=== PATIENT | female | born 1970 | race Caucasian/White ===

== ENCOUNTER → 2017-05-17 15:49 | Outpatient (CLI) | payer MEDICAID, SELFPAY ==
--- NOTE | 2017-05-17 | TONS_PTH ---
PATIENT: BRENDA FLORIAN [facility] U#:[id number] AGE/SX: 54/F ROOM: RE05/17/[address]: Dr. Terrance Hinton MD : 1970 BED: DIS: SPEC #: [id number] RECD: 05/17/17 15:47 STATUS: THANIA SRINIVASAN #: [id number] SUZIE: 05/17/17 00:[address]: Terrance Hinton DEPT: SURGICAL PATHOLOGY RECD BY: Robby Magaña ENTERED: 05/18/17 08:57 SP TYPE: TONSILS OTHR DR: Dr. Cb Borjas MD [facility] Tissues: Tonsil, NOS Procedures: Surgery Specimen Level III HEADER OPERATION: Tonsillectomy PRE-OP DIAGNOSIS: Chronic tonsillitis, acute recurrent streptococcal tonsillitis TISSUE SUBMITTED: Tonsils, right pinned MICROSCOPIC DIAGNOSIS Bilateral tonsils: Reactive lymphoid hyperplasia, consistent with chronic tonsillitis. Superficial acute inflammation. Focal actinomyces colonization. KRISTYN:tu 05/19/17 MICROSCOPIC DESCRIPTION Slides are reviewed. GROSS DESCRIPTION Received is one container labeled with the patient's name and designated tonsils - pin on right are two tonsils that in aggregate weigh 5.7 gm. The right tonsil has a pin on it and measures 2 x 1.5 x 1 cm. The left tonsil measures 3.5 x 2 x 1 cm. Both tonsils are similar in appearance. The external surfaces are pink-nixon, smooth, glistening and somewhat lobulated. Focally they are hemorrhagic, granular and bear cautery artifact. Serial cross sections through the tonsils reveal normal tonsillar architecture. Sections are submitted in two cassettes as follows: 1 - right tonsil, 2 - left tonsil. / KRISTYN:tu 05/18/17 TC:2 CPT: 27417 x2
== END ==
PROVIDERS: Family Provider Family Medicine; PCP Family Medicine; Visit Provider Otolaryngology Otolaryngology/Facial Plastic Surgery
DX: J03.01 Acute recurrent streptococcal tonsillitis (principal); J35.01 Chronic tonsillitis
CPT/HCPCS: 88304

== ENCOUNTER → 2018-02-01 23:11 | Outpatient (CLI) | payer MEDICAID, SELFPAY | PROVIDERS: Referring Provider Nurse Practitioner Family | DX: G47.00 Insomnia, unspecified (principal); G47.10 Hypersomnia, unspecified; G47.9 Sleep disorder, unspecified; R06.83 Snoring | CPT/HCPCS: 95810 ==

== ENCOUNTER → 2018-03-06 12:02 | Outpatient (CLI) | payer MEDICAID, SELFPAY ==
--- NOTE | 2018-03-06 12:05 | BI_ITS ---
MAMMOGRAPHY - BILATERAL SCREENING REASON FOR EXAM: Female, 47 years old. Routine annual screening examination. PERTINENT HISTORY: Aunts with breast cancer. TECHNIQUE: Digital bilateral breast adeline (3D mammographic acquisition) in the CC and MLO projections. 2-D mediolateral oblique (MLO) and craniocaudad (CC) views of both breasts were obtained. CAD: Full Field Digital Mammography with Computer Added Detection was performed. COMPARISON: No comparison mammograms available at this time. If any prior films become available, an addendum to this report can be generated. FINDINGS: Breast Composition: The breasts are heterogeneously dense, which may obscure small masses. There are no dominant masses or suspicious calcifications. Benign-appearing bilateral axillary lymph nodes. No other significant abnormalities are identified. BI/SCREENING MAMM (CAD), BILAT IMPRESSION: Negative screening mammogram. Yearly followup mammogram recommended. (A) ASSESSMENT CATEGORY: BIRADS Category 2: Benign. A letter regarding these results will be sent to the patient by the facility within 30 days. Approximately 10% of breast cancers are not detected by mammography. A normal mammogram should not delay biopsy of a clinically suspicious abnormality. [id number] Electronically Signed: Joce Patel MD at 8:08 EST Tel [phone], Service support ,
--- OUTSIDE RECORDS SUMMARY | 2018-06-08 02:18 | XMS RPT_ITS ---
:1970 Author Organization [facility] Care Team Providers Name Role Phone [facility] Referring Unavailable ROMARIO OKEEFE Attending Unavailable ROMARIO OKEEFE Attending Unavailable FERMÍN OKEEFEM ANASTACIA Referring Unavailable YVONNE HUNG (PRETZEL PACKER) Attending Unavailable [facility] Referring Unavailable ROMARIO OKEEFE Attending Unavailable YVONNE HUNG (PRETZEL PACKER) Referring [facility]available [facility] Attending Unavailable Jen Ibarra Referring Unavailable [facility] Primary Care Unavailable Terrance Hinton Attending Unavailable [facility] Primary [facility] Unavailable Terrance Hinton Referring Unavailable [facility] Attending Unavailable [facility] Unavailable PROBLEMS PROBLEMS DATE TYPE CONDITION / CODE ATTENDING STATUS SOURCE 07/04/2017 Active Abnormal findings ROMARIO OKEEFE Active [facility] on diagnostic [facility] imaging of other Repository parts of digestive tract / R93.3(ICD-10) 09/14/2017 Active Epigastric ROMARIO OKEEFE Active [facility] abdominal [facility] tenderness / Repository R10.816(ICD-10) 07/01/2017 Active Epigastric pain / NA Active [facility] R10.13(ICD-10) Other [place] Repository PROCEDURES PROCEDURES No Procedure Records FoundRESULTS RESULTS OBSOLETE Observed: 03/28/2018 Status: COMPLETED Source: [place] 12:00 AM [facility] REPOSITORY Refill (GSTNOR) ANIVALBRENDA Luma ([id number]) 1970 F Date Time Provider Department 03/28/18 ROMARIO OKEEFE GSTNOR During your visit today, we recorded the following information about you: Danae Honeycutt Ma 03/28/2018 3:33 PM Signed Pharmacy phones requesting refills as follows: Pending Prescriptions Disp Refills DIPHENOXYLATE-ATROPINE 2.5 MG-0.025 MG TABLET 30 tablet 2 Sig: Take 1 tablet by mouth three times daily as needed for up to 180 days. DAYSI Class: C-V YUKO: No Danae Honeycutt MA Allergies As of Date: 03/28/2018 Noted Allergy Reaction OXYCODONE 05/27/2015 8 - GI Upset Comments: Vomiting and diarrhea Date Reviewed: 11/25/2017 Reviewed by: Yoana Jacobo LPN - Fully Assessed Reason for Visit: Refill Request [94] Visit Diagnosis:Diarrhea, unspecified type [R19.7] Order(s):diphenoxylate-atropine (LOMOTIL) 2.5-0.025 mg per tabletTake 1 tablet by mouth three times daily as needed for up to 180 days.Disp: 30 tabletRfl: 2 Prescriptions as of 03/28/2018 Sig: DIPHENOXYLATE-ATROPINE 2.5 MG* Take 1 tablet by mouth three * OMEPRAZOLE 20 MG CAPSULE,ANDER* Take 2 capsules by mouth castro* ACYCLOVIR 400 MG TABLET Take 400 mg by mouth. TRAZODONE 50 MG TABLET Take 50 mg by mouth daily at * SERTRALINE 50 MG TABLET Take 50 mg by mouth once castro* DICYCLOMINE 20 MG TABLET Take 1 tablet by mouth four t* HYDROXYZINE PAMOATE 25 MG CAP* 50 mg three times daily as ne* LAMOTRIGINE 100 MG TABLET One tablet twice a day. ONDANSETRON 4 MG DISINTEGRATI* Take 1 tablet by mouth every * Problem List As Of Date 03/28/2018 Noted Resolved Idiopathic chronic hypotension [I95.0] INVALID FOR* Hypoglycemia [E16.2] INVALID FOR* Abnormal uterine bleeding [N93.9] INVALID FOR* Former smoker [Z87.891] INVALID FOR* Nausea and vomiting [R11.2] INVALID FOR*07/02/2015 Lower abdominal pain [R10.30] INVALID FOR*07/02/2015 Diarrhea [R19.7] INVALID FOR*07/02/2015 Irritable bowel syndrome with diarrhea [K58.0] INVALID FOR* Bipolar affective disorder, currently depressed*INVALID FOR* More... Personality disorder [F60.9] INVALID FOR* More... PTSD (post-traumatic stress disorder) [F43.10] INVALID FOR* Encounter for lipid screening for cardiovascula*INVALID FOR* Abnormal upper gastrointestinal barium series [*INVALID FOR* Prescriptions ordered this encounter Disp Refills Start End DIPHENOXYLATE-ATROPINE 2.5 MG-0.025 * 30 t* 2 04/03/2018 09/30/2018 Class: Call Rx Route: ORAL Sig: Take 1 tablet by mouth three times daily as needed for up to 180 days. Medications Discontinued During This Encounter diphenoxylate-atropine (LOMOTIL) 2.5* 30 t* 2 11/25/2017 04/03/2018 Class: Print RX Route: ORAL Sig: Take 1 tablet by mouth three times daily as needed for up to 180 days. Disc: Reason for discontinue is not on file. Encounter Status:Closed by ROMARIO OKEEFE MD on 04/03/18 SCREENING MAMM (CAD), Observed: 03/06/2018 Status: F Source: AYSHA SHIREENLEBRON 12:05 PM [facility] REPOSITORY [facility] Imaging Services [address] [place] [address] SCREENING MAMM (CAD), BILAT MR#: [id number] Acct: [id number] Name: BRENDA FLORIAN Rep #: [id number] : 1970 F 47 From: Joce Patel MD PCP: [facility] MD Status: REG CLI Study: SCREENING MAMM (CAD), BILAT Date of Exam: 03/06/18 Exam# [id number] Ordering Dr: Hipolito Skinner MAMMOGRAPHY - BILATERAL SCREENING REASON FOR EXAM: Female, 47 years old. Routine annual screening examination. PERTINENT HISTORY: Aunts with breast cancer. TECHNIQUE: Digital bilateral breast adeline (3D mammographic acquisition) in the CC and MLO projections. 2-D mediolateral oblique (MLO) and craniocaudad (CC) views of both breasts were obtained. CAD: Full Field Digital Mammography with Computer Added Detection was performed. COMPARISON: No comparison mammograms available at this time. If any prior films become available, an addendum to this report can be generated. FINDINGS: Breast Composition: The breasts are heterogeneously dense, which may obscure small masses. There are no dominant masses or suspicious calcifications. Benign-appearing bilateral axillary lymph nodes. No other significant abnormalities are identified. BI/SCREENING MAMM (CAD), BILAT IMPRESSION: Negative screening mammogram. Yearly followup mammogram recommended. (A) ASSESSMENT CATEGORY: BIRADS Category 2: Benign. A letter regarding these results will be sent to the patient by the facility within 30 days. Approximately 10% of breast cancers are not detected by mammography. A normal mammogram should not delay biopsy of a clinically suspicious abnormality. [id number] Electronically Signed: Joce Patel MD at 8:08 EST Tel [phone], Service support , CC: [facility] MD; [facility] Phlebotomy Manager: Signed CBC AND DIFFERENTIAL Collected: 02/15/2018 Status: F Source: [place] 9:09 AM CLINIC REFERENCE REPOSITORY TYPE CODE TESTS RESULT OUT OF REFERENCE UNITS RANGE LAB WBC(LOINC) 3.70-11.00 k/uL WBC 8.13 LAB RBC(LOINC) 3.90-5.20 m/uL RBC 4.38 LAB HGB(LOINC) 11.5-15.5 g/dL Hemoglobin 13.0 LAB HCT(LOINC) 36.0-46.0 % Hematocrit 40.4 LAB MCV(LOINC) 80.0-100.0 fL MCV 92.2 LAB MCH(LOINC) 26.0-34.0 pG MCH 29.7 LAB MCHC(LOINC 30.5-36.0 g/dL ) MCHC 32.2 LAB RDWCV(LOIN 11.5-15.0 % C) RDW-CV 13.0 LAB PLTCT(LOIN 150-400 k/uL C) Platelet Count 334 LAB MPV(LOINC) 9.0-12.7 fL MPV 11.1 LAB ANEUT(LOIN % C) Neut% 54.5 LAB AANEUT(LAMAR 1.45-7.50 k/uL NC) Abs Neut 4.41 LAB ALYMP(LOIN % C) Lymph% 32.3 LAB AALYMP(LAMAR 1.00-4.00 k/uL NC) Abs Lymph 2.63 LAB AMONO(LOIN % C) Gibson% 6.8 LAB AAMONO(LAMAR <0.87 k/uL NC) Abs Gibson 0.55 LAB AEOS(LOINC % ) Eosin% 5.5 LAB AAEOS(LOIN <0.46 k/uL C) Abs Eosin 0.45 LAB ABASO(LOIN % C) Baso% 0.9 LAB AABASO(LAMAR <0.11 k/uL NC) Abs Baso 0.07 LAB AUNRBC(LAMAR 0 /100 WBC NC) NRBCs 0.0 LAB ABNRBC(LAMAR <0.01 k/uL NC) Absolute nRBC <0.01 LAB DTYP(LOINC ) DTYPE ADIFF Performed By: #### CBCDIF, CMP, LIPB, FT4, LI, TSH, HBA1C, VITD #### [facility] Routine Lab [address] [place], [place] [address] COMP METABOLIC PANEL Collected: 02/15/2018 Status: F Source: [place] 9:09 AM CLINIC REFERENCE REPOSITORY TYPE CODE TESTS RESULT OUT OF REFERENCE UNITS RANGE LAB TP(LOINC) 6.3-8.0 g/dL Protein, Total 6.8 LAB ALB(LOINC) 3.9-4.9 g/dL Albumin 4.2 LAB CA(LOINC) 8.5-10.2 mg/dL Calcium, Total 8.8 LAB TBIL(LOINC 0.2-1.3 mg/dL ) Bilirubin, Total 0.3 LAB ALKP(LOINC 34-123 U/L ) Alkaline Phosphatase 86 LAB AST(LOINC) 13-35 U/L AST 30 LAB GLU(LOINC) 74-99 mg/dL Glucose 83 LAB BUN(LOINC) 7-21 mg/dL BUN 13 LAB CRET(LOINC 0.58-0.96 mg/dL ) Creatinine 0.83 LAB NA(LOINC) 136-144 mmol/L Sodium 140 LAB K(LOINC) 3.7-5.1 mmol/L Potassium 4.4 LAB CL(LOINC) 97-105 mmol/L Chloride 105 LAB CO2(LOINC) 22-30 mmol/L CO2 23 LAB AGAP(LOINC 9-18 mmol/L ) Anion Gap 12 LAB ALT(LOINC) 7-38 U/L ALT 29 LAB GFRAA(LOIN C) eGFR- >60 Amer. LAB GFRNAA(LAMAR . NC) eGFR-All Other Races >60 Performed By: #### CBCDIF, CMP, LIPB, FT4, LI, TSH, HBA1C, VITD #### [facility] Routine Lab [address] [place], [place] [address] LIPID PANEL, BASIC Collected: 02/15/2018 Status: F Source: [place] 9:09 AM [facility]INIC REFERENCE REPOSITORY TYPE CODE TESTS RESULT OUT OF REFERENCE UNITS RANGE LAB CHOL(LOINC <200 mg/dL ) Cholesterol 181 LAB TRIGLY(LAMAR <150 mg/dL NC) Triglyceride 83 LAB HDL(LOINC) >39 mg/dL HDL-Cholesterol 61 LAB LDL(LOINC) <100 mg/dL High LDL-Cholesterol 103 LAB NONHDL(LAMAR <130 mg/dL NC) Non HDL Cholesterol 120 LAB FT(LOINC) hrs Fasting Time 12 LAB VLDL(LOINC <30 mg/dL ) VLDL Cholesterol 17 LAB TCHDL(LOIN <5.10 C) TC:HDL Ratio 2.97 LAB LDLHDL(LAMAR <2.54 NC) LDL:HDL Ratio 1.69 Performed By: #### CBCDIF, CMP, LIPB, FT4, LI, TSH, HBA1C, VITD #### [facility] Routine Lab [address] [place] [address] FREE T4 Collected: 02/15/2018 Status: F Source: [place] 9:09 AM [facility] REFERENCE REPOSITORY TYPE CODE TESTS RESULT OUT OF RANGE REFERENCE UNITS LAB FT4(LOINC) 0.9-1.7 ng/dL Low Free T4 0.8 Performed By: #### CBCDIF, CMP, LIPB, FT4, LI, TSH, HBA1C, VITD #### [facility] Routine Lab [address] [place] [id number] LITHIUM Collected: 02/15/2018 Status: F Source: [place] 9:09 AM [facility] REFERENCE REPOSITORY TYPE CODE TESTS RESULT OUT OF REFERENCE UNITS RANGE LAB LI(LOINC) 0.6-1.2 mmol/L Low Evan 0.3 Performed By: #### CBCDIF, CMP, LIPB, FT4, LI, TSH, HBA1C, VITD #### [facility] Routine Lab [address] [place] [address] TSH Collected: 02/15/2018 Status: F Source: [place] 9:09 AM [facility] REFERENCE REPOSITORY TYPE CODE TESTS RESULT OUT OF RANGE REFERENCE UNITS LAB TSH(LOINC) 0.400-5.500 uU/mL TSH 3.430 Performed By: #### CBCDIF, CMP, LIPB, FT4, LI, TSH, HBA1C, VITD #### [facility] Routine Lab [address] [place] [address] HEMOGLOBIN A1C Collected: 02/15/2018 Status: F Source: [place] 9:09 AM CLINIC REFERENCE REPOSITORY TYPE CODE TESTS RESULT OUT OF REFERENCE UNITS RANGE LAB HGBA1C(LAMAR 4.3-5.6 % NC) Hemoglobin A1c 5.1 LAB HBA0(LOINC mg/dL ) Est. Average Glucose 100 Performed By: #### CBCDIF, CMP, LIPB, FT4, LI, TSH, HBA1C, VITD #### [facility] Routine Lab [address] [place], [place] [address] VITAMIN D 25 HYDROXY Collected: 02/15/2018 Status: F Source: [place] 9:09 AM CLINIC REFERENCE REPOSITORY TYPE CODE TESTS RESULT OUT OF REFERENCE UNITS RANGE LAB VITD(LOINC) 31.0-80.0 ng/mL Low Vitamin D 25 25.2 Hydroxy Performed By: #### CBCDIF, CMP, LIPB, FT4, LI, TSH, HBA1C, VITD #### [facility] Routine Lab [address] [place], [place] [address] CBC AND DIFFERENTIAL Collected: 01/04/2018 Status: F Source: [place] 11:27 AM CLINIC REFERENCE REPOSITORY TYPE CODE TESTS RESULT OUT OF REFERENCE UNITS RANGE LAB WBC(LOINC) 3.70-11.00 k/uL WBC 7.86 LAB RBC(LOINC) 3.90-5.20 m/uL RBC 4.33 LAB HGB(LOINC) 11.5-15.5 g/dL Hemoglobin 13.2 LAB HCT(LOINC) 36.0-46.0 % Hematocrit 40.4 LAB MCV(LOINC) 80.0-100.0 fL MCV 93.3 LAB MCH(LOINC) 26.0-34.0 pG MCH 30.5 LAB MCHC(LOINC 30.5-36.0 g/dL ) MCHC 32.7 LAB RDWCV(LOIN 11.5-15.0 % C) RDW-CV 13.0 LAB PLTCT(LOIN 150-400 k/uL C) Platelet Count 305 LAB MPV(LOINC) 9.0-12.7 fL MPV 10.9 LAB ANEUT(LOIN % C) Neut% 49.4 LAB AANEUT(LAMAR 1.45-7.50 k/uL NC) Abs Neut 3.86 LAB ALYMP(LOIN % C) Lymph% 38.5 LAB AALYMP(LAMAR 1.00-4.00 k/uL NC) Abs Lymph 3.03 LAB AMONO(LOIN % C) Gibson% 7.0 LAB AAMONO(LAMAR <0.87 k/uL NC) Abs Gibson 0.55 LAB AEOS(LOINC % ) Eosin% 4.2 LAB AAEOS(LOIN <0.46 k/uL C) Abs Eosin 0.33 LAB ABASO(LOIN % C) Baso% 0.9 LAB AABASO(LAMAR <0.11 k/uL NC) Abs Baso 0.07 LAB AUNRBC(LAMAR 0 /100 WBC NC) NRBCs 0.0 LAB ABNRBC(LAMAR <0.01 k/uL NC) Absolute nRBC <0.01 LAB DTYP(LOINC ) DTYPE ADIFF Performed By: #### CBCDIF, CMP, LIPB, TSH, FT4, HBA1C, VITD #### [facility] Routine Lab [address] [place] [address] COMP METABOLIC PANEL Collected: 01/04/2018 Status: F Source: [place] 11:27 AM CLINIC REFERENCE REPOSITORY TYPE CODE TESTS RESULT OUT OF REFERENCE UNITS RANGE LAB TP(LOINC) 6.3-8.0 g/dL Protein, Total 6.9 LAB ALB(LOINC) 3.9-4.9 g/dL Albumin 4.2 LAB CA(LOINC) 8.5-10.2 mg/dL Calcium, Total 8.9 LAB TBIL(LOINC 0.2-1.3 mg/dL ) Bilirubin, Total 0.2 LAB ALKP(LOINC 34-123 U/L ) Alkaline Phosphatase 85 LAB AST(LOINC) 13-35 U/L AST 26 LAB GLU(LOINC) 74-99 mg/dL Low Glucose 70 LAB BUN(LOINC) 7-21 mg/dL BUN 13 LAB CRET(LOINC 0.58-0.96 mg/dL ) Creatinine 0.85 LAB NA(LOINC) 136-144 mmol/L Sodium 139 LAB K(LOINC) 3.7-5.1 mmol/L Potassium 4.2 LAB CL(LOINC) 97-105 mmol/L Chloride 105 LAB CO2(LOINC) 22-30 mmol/L CO2 23 LAB AGAP(LOINC 9-18 mmol/L ) Anion Gap 11 LAB ALT(LOINC) 7-38 U/L ALT 20 LAB GFRAA(LOIN C) eGFR- >60 Amer. LAB GFRNAA(LAMAR . NC) eGFR-All Other Races >60 Performed By: #### CBCDIF, CMP, LIPB, TSH, FT4, HBA1C, VITD #### [facility] Routine Lab [address] [place] [id number] LIPID PANEL, BASIC Collected: 01/04/2018 Status: F Source: [place] 11:27 AM CLINIC REFERENCE REPOSITORY TYPE CODE TESTS RESULT OUT OF REFERENCE UNITS RANGE LAB CHOL(LOINC <200 mg/dL ) Cholesterol 197 LAB TRIGLY(LAMAR <150 mg/dL NC) Triglyceride 93 LAB HDL(LOINC) >39 mg/dL HDL-Cholesterol 64 LAB LDL(LOINC) <100 mg/dL High LDL-Cholesterol 114 LAB NONHDL(LAMAR <130 mg/dL NC) Non HDL High Cholesterol 133 LAB FT(LOINC) hrs Fasting Time 12 LAB VLDL(LOINC <30 mg/dL ) VLDL Cholesterol 19 LAB TCHDL(LOIN <5.10 C) TC:HDL Ratio 3.08 LAB LDLHDL(LAMAR <2.54 NC) LDL:HDL Ratio 1.78 Performed By: #### CBCDIF, CMP, LIPB, TSH, FT4, HBA1C, VITD #### [facility] Routine Lab [address] [place] [address] TSH Collected: 01/04/2018 Status: F Source: [place] 11:27 AM CLINIC REFERENCE REPOSITORY TYPE CODE TESTS RESULT OUT OF RANGE REFERENCE UNITS LAB TSH(LOINC) 0.400-5.500 uU/mL TSH 3.470 Performed By: #### CBCDIF, CMP, LIPB, TSH, FT4, HBA1C, VITD #### [facility] Routine Lab [address] [place] [address] FREE T4 Collected: 01/04/2018 Status: F Source: [place] 11:27 AM CLINIC REFERENCE REPOSITORY TYPE CODE TESTS RESULT OUT OF RANGE REFERENCE UNITS LAB FT4(LOINC) 0.9-1.7 ng/dL Free T4 1.0 Performed By: #### CBCDIF, CMP, LIPB, TSH, FT4, HBA1C, VITD #### [facility] Routine Lab [address] [place], [place] [address] HEMOGLOBIN A1C Collected: 01/04/2018 Status: F Source: [place] 11:27 AM CLINIC REFERENCE REPOSITORY TYPE CODE TESTS RESULT OUT OF REFERENCE UNITS RANGE LAB HGBA1C(LAMAR 4.3-5.6 % NC) Hemoglobin A1c 5.1 LAB HBA0(LOINC mg/dL ) Est. Average Glucose 100 Performed By: #### CBCDIF, CMP, LIPB, TSH, FT4, HBA1C, VITD #### [facility] Routine Lab [address] [place], [place] [address] VITAMIN D 25 HYDROXY Collected: 01/04/2018 Status: F Source: [place] 11:27 AM CLINIC REFERENCE REPOSITORY TYPE CODE TESTS RESULT OUT OF REFERENCE UNITS RANGE LAB VITD(LOINC) 31.0-80.0 ng/mL Low Vitamin D 25 23.7 Hydroxy Performed By: #### CBCDIF, CMP, LIPB, TSH, FT4, HBA1C, VITD #### [facility] Routine Lab [address] [place], [place] [address] HPV W/GENOTYPE Collected: 01/03/2018 Status: F Source: [place] 10:57 PM CLINIC REFERENCE REPOSITORY TYPE CODE TESTS RESULT OUT OF REFERENCE UNITS RANGE LAB HPVT16(LOIN C) HPV HighRisk NHPV16 Type 16 LAB HPVT18(LOIN C) HPV HighRisk NHPV18 Type 18 LAB HPVHRO(LOIN C) HPV HighRisk PCR. Other Observed: 01/03/2018 Status: F Source: [place] CYTOLOGY 12:00 AM CLINIC REFERENCE REPOSITORY ADDITIONAL PROCEDURES PRESENT Specimen #: [id number] Submitting Physician: MADYSON VOGT SPECIMEN SUBMITTED A: CERVICAL, SCREENING, FLUID FINAL DIAGNOSIS A. CERVICAL, SCREENING, FLUID Satisfactory for interpretation. Limited cellularity. Negative for intraepithelial lesion or malignancy. This specimen has been analyzed by the ThinPrep Imaging System, an automated imaging and review system, which assists the laboratory in evaluating cells on ThinPrep Pap tests. Following automated imaging, selected sanders from every slide are reviewed by a home health care respiratory therapist. ADITHYA Santana(ASCP) (Electronic Signature) ADDITIONAL PROCEDURE(S) HUMAN PAPILLOMA VIRUS Date Ordered: 01/05/2018 Date Reported: 01/09/2018 Procedure Results and Interpretation Negative for HPV DNA high risk type 16 by PCR. Negative for HPV DNA high risk type 18 by PCR. Negative for HPV DNA high risk types: 31,33,35,39,45,51,52,56,58,59,66,68 by PCR. This test was developed and its performance characteristics determined by [facility]'s [facility] [place] ([facility] It has not been cleared or approved by the FDA. [facility] is regulated under CLIA as qualified to perform high-complexity testing. This test is used for clinical purposes. It should not be regarded as investigational or for research. CLINICAL DATA OLGA LIDIA, HPV Testing; Yes, automatic HPV patients over 30 Date of Last Menstrual Period: 01/03/2018 STAINS A: CERVICAL, SCREENING, FLUID [facility] SPECIALIST Albertina Dodge M.D., Machine Bunch Maker Date of Report: 01/10/2018 Date of Procedure: 01/03/2018 Date of Receipt: 01/05/2018 Submitted by: MADYSON VOGT Location: Diagnostic interpretation performed at [facility], [address] [place] [address]. The Pap Smear is a screening test for cervical cancer. False negative results occur with all screening tests, emphasizing the need for rescreening at recommended intervals, and clinical correlation. Performed By: #### C #### See report for performing lab information. PROGRESS Observed: 11/25/2017 Status: COMPLETED Source: [place] 10:44 AM [facility] REPOSITORY HNO ID: [id number] Author: Romario Okeefe Service: (none) Author Type: Physician Type: Progress Notes Filed: 11/30/2017 8:18 AM Note Text: Abdominal Pain; epigastric tenderness; abnormal UGI; and Diarrhea (follow-up EGD) MADISON Florian is a 46 year old female here today for Abdominal Pain; epigastric tenderness; abnormal UGI; and Diarrhea (follow- up EGD). Patient s/p EGD, reflux symptoms under control on PPI, off of NSAIDS. Diarrhea under symptomatic control with bentyl and lomotil. Record Review: [facility] records reviewed Current Outpatient Prescriptions: omeprazole (PRILOSEC) 20 mg capsule Take 2 capsules by mouth daily before breakfast. 1/2 hr before meal. acyclovir (ZOVIRAX) 400 mg tablet Take 400 mg by mouth. traZODone (DESYREL) 50 mg tablet Take 50 mg by mouth daily at bedtime. Up to 150mg sertraline (ZOLOFT) 50 mg tablet Take 50 mg by mouth once daily. diphenoxylate-atropine (LOMOTIL) 2.5-0.025 mg per tablet Take 1 tablet by mouth three times daily as needed for up to 180 days. dicyclomine (BENTYL) 20 mg tablet Take 1 tablet by mouth four times daily as needed. hydrOXYzine pamoate (VISTARIL) 25 mg capsule 50 mg three times daily as needed. lamoTRIgine (LAMICTAL) 100 mg tablet One tablet twice a day. busPIRone (BUSPAR) 15 mg tablet Take 1/2 a tab by mouth twice a day for 2 weeks than one twice a day. ondansetron orally disintegrating (ZOFRAN ODT) 4 mg disintegrating tablet Take 1 tablet by mouth every 6 hours as needed for Nausea/Vomiting. No current facility-administered medications for this visit. ALLERGIES Allergen Reactions - Oxycodone GI Upset Vomiting and diarrhea Social History Substance Use Topics - Smoking status: Former Smoker Packs/day: 0.09 Years: 14.00 Quit date: 05/30/2015 - Smokeless tobacco: Never Used - Alcohol use Yes Comment: Rarely PAST MEDICAL HISTORY Diagnosis Date - Bipolar affective disorder, currently depressed, moderate (HCC) 07/06/2016 Has been off and on medications since the age of 23 - Dysmenorrhea - Esophagitis - Excessive or frequent menstruation Heavy periods - Gastritis - Hypoglycemia 05/14/2015 - Idiopathic chronic hypotension 05/14/2015 - Irritable bowel syndrome with diarrhea 05/04/2016 - Lactose intolerance in adult 2016 - Personality disorder (HCC) 07/06/2016 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 - PTSD (post-traumatic stress disorder) 07/06/2016 PAST SURGICAL HISTORY Procedure Laterality Date - COLONOSCOPY 07/02/2015 normal colon, 5 mm rectal polyp - CRYOCAUTERY OF CERVIX 2 times - EGD 09/14/2017 Grade A reflux esophagitis, acute gastritis, neg H Pylori - 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 Gas PHYSICAL EXAM BP 136/80 Pulse 63 Ht 157.5 cm (5' 2) Wt 63.3 kg (139 lb 8 oz) SpO2 96% BMI 25.51 kg/m? BMI 25.51 kg/(m2) Physical Exam Constitutional: She is oriented to person, place, and time and well-developed, well-nourished, and in no distress. HENT: Head: Normocephalic and atraumatic. Eyes: Conjunctivae are normal. No scleral icterus. Neck: Neck supple. Cardiovascular: Normal rate, regular rhythm and normal heart sounds. Pulmonary/Chest: Effort normal and breath sounds normal. Abdominal: Soft. Bowel sounds are normal. Musculoskeletal: She exhibits no edema. Neurological: She is alert and oriented to person, place, and time. Gait normal. Skin: Skin is warm and dry. Psychiatric: Mood, memory, affect and judgment normal. Assessment/Plan: Brenda was seen today for abdominal pain, epigastric tenderness, abnormal ugi and diarrhea. Diagnoses and all orders for this visit: Irritable bowel syndrome with diarrhea Epigastric abdominal tenderness without rebound tenderness Diarrhea, unspecified type continue Bentyl and lomotil Gastroesophageal reflux disease without esophagitis Continue Omeprazole I have confirmed and edited as necessary, the PFSH and ROS obtained by others. Romario Okeefe MD DATE: 11/25/17 TIME: 10:44 AM BETO Observed: 11/25/2017 Status: COMPLETED Source: [place] 10:30 AM [facility] REPOSITORY Office Visit (GSTNOR) BRENDA FLORIAN ([id number]) 1970 F Date Time Provider Department 11/25/17 10:30 AM ROMARIO OKEEFE GSTNOR During your visit today, we recorded the following information about you: Pulse Blood pressure Weight Height 63/minute 136/80 63.3 kg 1.575 m Romario Okeefe MD 11/30/2017 8:18 AM Signed Abdominal Pain; epigastric tenderness; abnormal UGI; and Diarrhea (follow-up EGD) HPI Brenda Florian is a 46 year old female here today for Abdominal Pain; epigastric tenderness; abnormal UGI; and Diarrhea (follow- up EGD). Patient s/p EGD, reflux symptoms under control on PPI, off of NSAIDS. Diarrhea under symptomatic control with bentyl and lomotil. Record Review: [facility] records reviewed Current Outpatient Prescriptions: omeprazole (PRILOSEC) 20 mg capsule Take 2 capsules by mouth daily before breakfast. 1/2 hr before meal. acyclovir (ZOVIRAX) 400 mg tablet Take 400 mg by mouth. traZODone (DESYREL) 50 mg tablet Take 50 mg by mouth daily at bedtime. Up to 150mg sertraline (ZOLOFT) 50 mg tablet Take 50 mg by mouth once daily. diphenoxylate-atropine (LOMOTIL) 2.5-0.025 mg per tablet Take 1 tablet by mouth three times daily as needed for up to 180 days. dicyclomine (BENTYL) 20 mg tablet Take 1 tablet by mouth four times daily as needed. hydrOXYzine pamoate (VISTARIL) 25 mg capsule 50 mg three times daily as needed. lamoTRIgine (LAMICTAL) 100 mg tablet One tablet twice a day. busPIRone (BUSPAR) 15 mg tablet Take 1/2 a tab by mouth twice a day for 2 weeks than one twice a day. ondansetron orally disintegrating (ZOFRAN ODT) 4 mg disintegrating tablet Take 1 tablet by mouth every 6 hours as needed for Nausea/Vomiting. No current facility-administered medications for this visit. ALLERGIES Allergen Reactions - Oxycodone GI Upset Vomiting and diarrhea Social History Substance Use Topics - Smoking status: Former Smoker Packs/day: 0.09 Years: 14.00 Quit date: 05/30/2015 - Smokeless tobacco: Never Used - Alcohol use Yes Comment: Rarely PAST MEDICAL HISTORY Diagnosis Date - Bipolar affective disorder, currently depressed, moderate (HCC) 07/06/2016 Has been off and on medications since the age of 23 - Dysmenorrhea - Esophagitis - Excessive or frequent menstruation Heavy periods - Gastritis - Hypoglycemia 05/14/2015 - Idiopathic chronic hypotension 05/14/2015 - Irritable bowel syndrome with diarrhea 05/04/2016 - Lactose intolerance in adult 2016 - Personality disorder (HCC) 07/06/2016 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 - PTSD (post-traumatic stress disorder) 07/06/2016 PAST SURGICAL HISTORY Procedure Laterality Date - COLONOSCOPY 07/02/2015 normal colon, 5 mm rectal polyp - CRYOCAUTERY OF CERVIX 2 times - EGD 09/14/2017 Grade A reflux esophagitis, acute gastritis, neg H Pylori - 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 Gas PHYSICAL EXAM BP 136/80 Pulse 63 Ht 157.5 cm (5' 2) Wt 63.3 kg (139 lb 8 oz) SpO2 96% BMI 25.51 kg/m? BMI 25.51 kg/(m2) Physical Exam Constitutional: She is oriented to person, place, and time and well-developed, well-nourished, and in no distress. HENT: Head: Normocephalic and atraumatic. Eyes: Conjunctivae are normal. No scleral icterus. Neck: Neck supple. Cardiovascular: Normal rate, regular rhythm and normal heart sounds. Pulmonary/Chest: Effort normal and breath sounds normal. Abdominal: Soft. Bowel sounds are normal. Musculoskeletal: She exhibits no edema. Neurological: She is alert and oriented to person, place, and time. Gait normal. Skin: Skin is warm and dry. Psychiatric: Mood, memory, affect and judgment normal. Assessment/Plan: Brenda was seen today for abdominal pain, epigastric tenderness, abnormal ugi and diarrhea. Diagnoses and all orders for this visit: Irritable bowel syndrome with diarrhea Epigastric abdominal tenderness without rebound tenderness Diarrhea, unspecified type continue Bentyl and lomotil Gastroesophageal reflux disease without esophagitis Continue Omeprazole I have confirmed and edited as necessary, the PFSH and ROS obtained by others. Romario Okeefe MD DATE: 11/25/17 TIME: 10:44 AM Referring Provider: SELF [[id number]] Allergies As of Date: 11/25/2017 Noted Allergy Reaction OXYCODONE 05/27/2015 8 - GI Upset Comments: Vomiting and diarrhea Date Reviewed: 11/25/2017 Reviewed by: Yoana Jacobo LPN - Fully Assessed Reason for Visit: Abdominal Pain [1] epigastric tenderness [Other] abnormal UGI [Other] Diarrhea [35] Cmt: follow-up EGD Primary Visit Diagnosis:Irritable bowel syndrome with diarrhea [K58.0] Other Visit Diagnoses:Epigastric abdominal tenderness without rebound tenderness [R10.816] Diarrhea, unspecified type [R19.7] Gastroesophageal reflux disease without esophagitis [K21.9] Order(s):diphenoxylate-atropine (LOMOTIL) 2.5-0.025 mg per tabletTake 1 tablet by mouth three times daily as needed for up to 180 days.Disp: 30 tabletRfl: 2 Prescriptions as of 11/25/2017 Sig: DIPHENOXYLATE-ATROPINE 2.5 MG* Take 1 tablet by mouth three * OMEPRAZOLE 20 MG CAPSULE,ANDER* Take 2 capsules by mouth castro* ACYCLOVIR 400 MG TABLET Take 400 mg by mouth. TRAZODONE 50 MG TABLET Take 50 mg by mouth daily at * SERTRALINE 50 MG TABLET Take 50 mg by mouth once castro* DICYCLOMINE 20 MG TABLET Take 1 tablet by mouth four t* HYDROXYZINE PAMOATE 25 MG CAP* 50 mg three times daily as ne* LAMOTRIGINE 100 MG TABLET One tablet twice a day. ONDANSETRON 4 MG DISINTEGRATI* Take 1 tablet by mouth every * Problem List As Of Date 11/25/2017 Noted Resolved Idiopathic chronic hypotension [I95.0] INVALID FOR* Priority: A Hypoglycemia [E16.2] INVALID FOR* Priority: B Abnormal uterine bleeding [N93.9] INVALID FOR* Former smoker [Z87.891] INVALID FOR* Nausea and vomiting [R11.2] INVALID FOR*07/02/2015 Lower abdominal pain [R10.30] INVALID FOR*07/02/2015 Diarrhea [R19.7] INVALID FOR*07/02/2015 Irritable bowel syndrome with diarrhea [K58.0] INVALID FOR* Priority: B Bipolar affective disorder, currently depressed*INVALID FOR* Priority: A More... Personality disorder [F60.9] INVALID FOR* Priority: A More... PTSD (post-traumatic stress disorder) [F43.10] INVALID FOR* Priority: A Encounter for lipid screening for cardiovascula*INVALID FOR* Abnormal upper gastrointestinal barium series [*INVALID FOR* Prescriptions ordered this encounter Disp Refills Start End DIPHENOXYLATE-ATROPINE 2.5 MG-0.025 * 30 t* 2 11/25/2017 05/24/2018 Class: Print RX Route: ORAL Sig: Take 1 tablet by mouth three times daily as needed for up to 180 days. Medications Discontinued During This Encounter busPIRone (BUSPAR) 15 mg tablet 60 t* 3 09/14/2016 11/25/2017 Sig: Take 1/2 a tab by mouth twice a day for 2 weeks than one twice a day. Disc: Reason for discontinue is not on file. diphenoxylate-atropine (LOMOTIL) 2.5* 30 t* 2 09/06/2017 11/25/2017 Class: Print RX Route: ORAL Sig: Take 1 tablet by mouth three times daily as needed for up to 180 days. Disc: Reason for discontinue is not on file. Disposition: Return in about 6 months (around 05/25/2018). Follow-up and Disposition History Recorded Encounter Status:Closed by ROMARIO OKEEFE MD on 11/30/17 SURGICAL PATHOLOGY Observed: 09/14/2017 Status: F Source: [place] 9:18 AM [facility] REPOSITORY Specimen originated from [facility] Specimen #: [id number] Submitting Physician: ROMARIO OKEEFE FINAL DIAGNOSIS 1. Duodenum bulb, biopsy (A) - Duodenal mucosa with focal erosion and active inflammation. - No morphologic features of celiac disease. 2. Antrum, biopsy (B) - Antral mucosa with chronic inactive gastritis. - Negative for Helicobacter pylori (immunostain). /jenny 09/15/2017 COMMENT 2. Given the background of chronic gastritis a Helicobacter pylori immunostain was performed on block B1 and is negative for Helicobacter pylori organisms. Laboratory Developed Test (LDT) Disclaimer: Positive and negative controls stain appropriately. Performance characteristics of immunohistochemical, immunofluorescent and chromogenic in-situ hybridization tests have been determined by [facility]'s [facility] Pathology and Laboratory Medicine [place] ([facility] in a manner consistent with CLIA requirements. One or more of these tests have not been cleared or approved by the FDA. [facility] is regulated under CLIA as qualified to perform high-complexity testing. These tests are used for clinical purposes. They should not be regarded as investigational or for research. Pino Vasquez MD, Ph.D. (Electronic Signature) SPECIMEN SUBMITTED A: DUODENAL BULB, BIOPSY B: ANTRUM, BIOPSY CLINICAL DATA epigastric tenderness/diarrhea GROSS DESCRIPTION A. Received in formalin are two pieces of nixon, soft tissue aggregating to 0.5 x 0.2 x 0.2 cm. Totally submitted in one cassette. B. Received in formalin are four pieces of nixon, soft tissue aggregating to 0.8 x 0.3 x 0.2 cm. Totally submitted in one cassette. Gross examination performed at [facility], [address] [place] [address] 09/15/2017 12:57:59 AM Date of Report: 09/16/2017 Date of Procedure: 09/14/2017 Date of Receipt: 09/14/2017 Submitted by: ROMARIO OKEEFE Location: [facility] Diagnostic interpretation performed at [facility], [address] [place] [address]. HISTORY PHYSICAL Observed: 09/14/2017 Status: COMPLETED Source: [place] 8:47 AM [facility] RE[facility]ITORY [facility] ID: [id number] Author: Romario Okeefe Service: (none) Author Type: Physician Type: HANDP Filed: 09/14/2017 9:18 AM Note Text: HISTORY AND PHYSICAL Brenda Florian, 46 year old female here for EGD, epigastric pain, tenderness and abnormal UGI showing thickening of stomach, duodenum and proximal small bowel Current history and physical on file: Yes Is a new History and Physical required for today's visit? No Indication for procedure: Abdominal pain PROCEDURE(S) SCHEDULED FOR: EGD (Esophagogastroduodenoscopy) with or without biopsies, removal of polyps or lesions, dilation ( any means), treatment of bleeding ( any means), Barrx treatment of Giovanni's Esophagus, image tube placement or cryo therapy treatment based on clinical findings. BASELINE BEHAVIOR: Calm BASELINE ORIENTATION: A AND O x3 All medications and allergies reviewed: Yes Skin Assessment: Warm dry muscus membranes pink Airway/Respiratory Assessment: Airway: visualization of the uvula- Yes Mouth: opening greater than 2 fingerbreadths- Yes Neck: full range of motion- Yes Breath sounds clear/equal- Yes Cardiac Assessment: Regular rate and rhythm without murmur Abdominal Assessment: Abdomen soft, non-tender, no masses or organomegaly. Sedation Plan: Deep Additional Comments: None Romario Okeefe MD PROGRESS Observed: 09/06/2017 Status: COMPLETED Source: [place] 1:51 PM [facility] RE[facility] HNO ID: [id number] Author: Romario Okeefe Service: (none) Author Type: Physician Type: Progress Notes Filed: 09/06/2017 2:19 PM Note Text: Abdominal Pain (abnormal UGI evaluate for an EGD) HPI: Brenda Florian is a 46 year old female who presents for Abdominal Pain (abnormal UGI evaluate for an EGD). C/O epigastric pain, severe episodic pain, lasting entire night. Takes oral antiacids for this pain episodes. Takes prilosec for heart burn, reasonably under control. No dysphagia, but does have reclining reflux, no cough, hoarseness of voice. No weight loss. Has some diarrhea for which takes bentyl and loperamide. 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 traZODone (DESYREL) 50 mg tablet Take 50 mg by mouth daily at bedtime. Up to 150mg sertraline (ZOLOFT) 50 mg tablet Take 50 mg by mouth once daily. dicyclomine (BENTYL) 20 mg tablet Take 1 tablet by mouth four times daily as needed. hydrOXYzine pamoate (VISTARIL) 25 mg capsule 50 mg three times daily as needed. lamoTRIgine (LAMICTAL) 100 mg tablet One tablet twice a day. omeprazole (PRILOSEC) 20 mg capsule Take 1 capsule by mouth daily before breakfast. 1/2 hr before meal. busPIRone (BUSPAR) 15 mg tablet Take 1/2 a tab by mouth twice a day for 2 weeks than one twice a day. ondansetron orally disintegrating (ZOFRAN ODT) 4 mg disintegrating tablet Take 1 tablet by mouth every 6 hours as needed for Nausea/Vomiting. diphenoxylate-atropine (LOMOTIL) 2.5-0.025 mg per tablet Take 1 tablet by mouth three times daily as needed for up to 180 days. FAMILY HISTORY Problem Relation Age of Onset - Cancer Mother Lung and brain - Cervical Cancer Mother - Breast Cancer Maternal Aunt - Breast Cancer Maternal Aunt Employer And Job Title: [employer] ([employer]) Years Of Education Completed: Not specified Marital Status: Single with 4 children Social History Substance Use Topics - Smoking status: Former Smoker Packs/day: 0.09 Years: 14.00 Quit date: 05/30/2015 - Smokeless tobacco: Never Used - Alcohol use Yes Comment: Rarely Review of Systems: Review of Systems Gastrointestinal: Positive for abdominal distention, abdominal pain and diarrhea. Gas Where do you currently reside? [place] Are you taking any blood thinners? No Physical Examination: Physical Exam Constitutional: She is oriented to person, place, and time and well-developed, well-nourished, and in no distress. HENT: Head: Normocephalic and atraumatic. Eyes: Conjunctivae are normal. No scleral icterus. Neck: Neck supple. Cardiovascular: Normal rate, regular rhythm and normal heart sounds. Pulmonary/Chest: Effort normal and breath sounds normal. Abdominal: Soft. Bowel sounds are normal. There is tenderness. Moderate epigastric tenderness Musculoskeletal: She exhibits no edema. Neurological: She is alert and oriented to person, place, and time. Gait normal. Skin: Skin is warm and dry. Psychiatric: Mood, memory, affect and judgment normal. Assessment/Plan: Brenda was seen today for abdominal pain. Diagnoses and all orders for this visit: Irritable bowel syndrome with diarrhea Epigastric abdominal tenderness without rebound tenderness - EGD GEN ANES; Future Abnormal upper gastrointestinal barium series - EGD GEN ANES; Future Diarrhea, unspecified type - diphenoxylate-atropine (LOMOTIL) 2.5-0.025 mg per tablet; Take 1 tablet by mouth three times daily as needed for up to 180 days. I have confirmed and edited as necessary, the PFSH and ROS obtained by others. This note was generated using Stealth10 voice recognition system, and there may be some incorrect words, spellings, and punctuation that were not noted in checking the note before saving. Yoana Jacobo LPN CNOV Observed: 09/06/2017 Status: COMPLETED Source: [place] 1:30 PM [facility] REPOSITORY Office Visit ([facility]) BRENDA FLORIAN ([id number]) 1970 F Date Time Provider Department 09/06/17 1:30 PM ROMARIO OKEEFE [facility] During your visit today, we recorded the following information about you: Pulse Blood pressure Weight Height 69/minute 110/76 62.1 kg 1.575 m Romario Okeefe MD 09/06/2017 2:19 PM Signed Abdominal Pain (abnormal UGI evaluate for an EGD) HPI: Brenda Florian is a 46 year old female who presents for Abdominal Pain (abnormal UGI evaluate for an EGD). C/O epigastric pain, severe episodic pain, lasting entire night. Takes oral antiacids for this pain episodes. Takes prilosec for heart burn, reasonably under control. No dysphagia, but does have reclining reflux, no cough, hoarseness of voice. No weight loss. Has some diarrhea for which takes bentyl and loperamide. 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 traZODone (DESYREL) 50 mg tablet Take 50 mg by mouth daily at bedtime. Up to 150mg sertraline (ZOLOFT) 50 mg tablet Take 50 mg by mouth once daily. dicyclomine (BENTYL) 20 mg tablet Take 1 tablet by mouth four times daily as needed. hydrOXYzine pamoate (VISTARIL) 25 mg capsule 50 mg three times daily as needed. lamoTRIgine (LAMICTAL) 100 mg tablet One tablet twice a day. omeprazole (PRILOSEC) 20 mg capsule Take 1 capsule by mouth daily before breakfast. 1/2 hr before meal. busPIRone (BUSPAR) 15 mg tablet Take 1/2 a tab by mouth twice a day for 2 weeks than one twice a day. ondansetron orally disintegrating (ZOFRAN ODT) 4 mg disintegrating tablet Take 1 tablet by mouth every 6 hours as needed for Nausea/Vomiting. diphenoxylate-atropine (LOMOTIL) 2.5-0.025 mg per tablet Take 1 tablet by mouth three times daily as needed for up to 180 days. FAMILY HISTORY Problem Relation Age of Onset - Cancer Mother Lung and brain - Cervical Cancer Mother - Breast Cancer Maternal Aunt - Breast Cancer Maternal Aunt Employer And Job Title: [employer] ([employer]r) Years Of Education Completed: Not specified Marital Status: Single with 4 children Social History Substance Use Topics - Smoking status: Former Smoker Packs/day: 0.09 Years: 14.00 Quit date: 05/30/2015 - Smokeless tobacco: Never Used - Alcohol use Yes Comment: Rarely Review of Systems: Review of Systems Gastrointestinal: Positive for abdominal distention, abdominal pain and diarrhea. Gas Where do you currently reside? [place]ependently Are you taking any blood thinners? No Physical Examination: Physical Exam Constitutional: She is oriented to person, place, and time and well-developed, well-nourished, and in no distress. HENT: Head: Normocephalic and atraumatic. Eyes: Conjunctivae are normal. No scleral icterus. Neck: Neck supple. Cardiovascular: Normal rate, regular rhythm and normal heart sounds. Pulmonary/Chest: Effort normal and breath sounds normal. Abdominal: Soft. Bowel sounds are normal. There is tenderness. Moderate epigastric tenderness Musculoskeletal: She exhibits no edema. Neurological: She is alert and oriented to person, place, and time. Gait normal. Skin: Skin is warm and dry. Psychiatric: Mood, memory, affect and judgment normal. Assessment/Plan: Brenda was seen today for abdominal pain. Diagnoses and all orders for this visit: Irritable bowel syndrome with diarrhea Epigastric abdominal tenderness without rebound tenderness - EGD GEN ANES; Future Abnormal upper gastrointestinal barium series - EGD GEN ANES; Future Diarrhea, unspecified type - diphenoxylate-atropine (LOMOTIL) 2.5-0.025 mg per tablet; Take 1 tablet by mouth three times daily as needed for up to 180 days. I have confirmed and edited as necessary, the PFSH and ROS obtained by others. This note was generated using Stealth10 voice recognition system, and there may be some incorrect words, spellings, and punctuation that were not noted in checking the note before saving. Yoana Jacobo LPN Referring Provider: YVONNE HUNG (PRETZEL PACKER) [[id number]] Allergies As of Date: 09/06/2017 Noted Allergy Reaction OXYCODONE 05/27/2015 8 - GI Upset Comments: Vomiting and diarrhea Date Reviewed: 09/06/2017 Reviewed by: Yoana Jacobo LPN - Fully Assessed Reason for Visit: Abdominal Pain [1] Cmt: abnormal UGI evaluate for an EGD Primary Visit Diagnosis:Irritable bowel syndrome with diarrhea [K58.0] Other Visit Diagnoses:Epigastric abdominal tenderness without rebound tenderness [R10.816] Abnormal upper gastrointestinal barium series [R93.3] Diarrhea, unspecified type [R19.7] Order(s):EGD GEN NICOLASA [[id number]] Order #: [id number] FUTURE diphenoxylate-atropine (LOMOTIL) 2.5-0.025 mg per tabletTake 1 tablet by mouth three times daily as needed for up to 180 days.Disp: 30 tabletRfl: 2 Prescriptions as of 09/06/2017 Sig: ACYCLOVIR 400 MG TABLET Take 400 mg by mouth. TRAZODONE 50 MG TABLET Take 50 mg by mouth daily at * SERTRALINE 50 MG TABLET Take 50 mg by mouth once castro* DICYCLOMINE 20 MG TABLET Take 1 tablet by mouth four t* HYDROXYZINE PAMOATE 25 MG CAP* 50 mg three times daily as ne* LAMOTRIGINE 100 MG TABLET One tablet twice a day. OMEPRAZOLE 20 MG CAPSULE,ANDER* Take 1 capsule by mouth daily* BUSPIRONE 15 MG TABLET Take 1/2 a tab by mouth twice* ONDANSETRON 4 MG DISINTEGRATI* Take 1 tablet by mouth every * DIPHENOXYLATE-ATROPINE 2.5 MG* Take 1 tablet by mouth three * Problem List As Of Date 09/06/2017 Noted Resolved Idiopathic chronic hypotension [I95.0] INVALID FOR* Priority: A Hypoglycemia [E16.2] INVALID FOR* Priority: B Abnormal uterine bleeding [N93.9] INVALID FOR* Former smoker [Z87.891] INVALID FOR* Nausea and vomiting [R11.2] INVALID FOR*07/02/2015 Lower abdominal pain [R10.30] INVALID FOR*07/02/2015 Diarrhea [R19.7] INVALID FOR*07/02/2015 Irritable bowel syndrome with diarrhea [K58.0] INVALID FOR* Priority: B Bipolar affective disorder, currently depressed*INVALID FOR* Priority: A More... Personality disorder [F60.9] INVALID FOR* Priority: A More... PTSD (post-traumatic stress disorder) [F43.10] INVALID FOR* Priority: A Encounter for lipid screening for cardiovascula*INVALID FOR* Abnormal upper gastrointestinal barium series [*INVALID FOR* Prescriptions ordered this encounter Disp Refills Start End DIPHENOXYLATE-ATROPINE 2.5 MG-0.025 * 30 t* 2 09/06/2017 03/05/2018 Class: Print RX Route: ORAL Sig: Take 1 tablet by mouth three times daily as needed for up to 180 days. Encounter Status:Closed by ROMARIO OKEEFE MD on 09/06/17 CNCO Observed: 09/06/2017 Status: COMPLETED Source: [place] 12:00 AM [facility] REPOSITORY Letter Text UPPER ENDOSCOPY (EGD) You are scheduled at: [place] [address] You are scheduled for an EGD on . 09/14/17 at 8:30 am. YOU MUST have a responsible adult to drive you home and to assist you at home while you finish recovering from your sedation. Please limit the number of people that come with you to 1-2 people due to the limited waiting area. Bring your Feed Management Advisor's license, insurance card(s) and a list of your medications with you. Arrive 45 minutes before your scheduled exam time at 7:45 am Do not eat or drink anything after midnight the night before, including gum and hard candy. If you take any heart, blood pressure or breathing medications, you can take these before 6:00am on the day of your exam with a little sip of water. 5 DAYS BEFORE THE EXAM STOP TAKING ASPIRIN OR ASPIRIN CONTAINING PRODUCTS, VITAMIN E, BLOOD THINNERS SUCH COUMADIN, WARFARIN, PLAVIX, AGGRENOX (Please consult with the prescribing doctor of your blood thinner). DAY OF THE EXAM Diabetics: Please do not take any of your diabetic medications on the morning of the procedure; you may take them after the procedure. Any questions, please call our office at [phone]. There will be a $50.00 charge for any no show appointments or same day cancels. PROGRESS Observed: 08/03/2017 Status: COMPLETED Source: [place] 9:12 AM [facility] REPOSITORY HNO ID: [id number] Author: Yvonne (Hanna) Abhilash Service: (none) Author Type: Nurse Practitioner Type: Progress Notes Filed: 08/03/2017 10:00 AM Note Text: Brenda Florian a 46 year old female who is referred by Dr. House for an opinion regarding an abnormal UGI. My final recommendations will be communicated back to the requesting physician by way of shared Medical Record. The patient reports that she is seeing Jen Guzman NP, at the [facility]. She ordered an UGI. The radiologist called Dr. House, to see about getting a SBFT the same day. UGI-SBFT 07/01/17: IMPRESSION: 1. ?Question some thickening of folds in the stomach, duodenum and proximal jejunum. 2. ?Terminal ileum unremarkable The patient has been seen previously. I initially saw her in consultation on 06/10/15. That note has been reviewed. She was found to be lactose intolerant. Set up for procedures. The patient was seen by Dr. George for upper endoscopy and colonoscopy 07/02/15. The procedure report has been reviewed and findings as follows: EGD Findings: ? ? ?Mucosal changes including ringed esophagus, feline appearance and ? ? ?longitudinal furrows were found in the entire esophagus. Biopsies were ? ? ?taken with a cold forceps for histology. ? ? ?The entire examined stomach was normal. Biopsies were taken with a cold ? ? ?forceps for histology. Biopsies were taken with a cold forceps for ? ? ?Helicobacter pylori testing. ? ? ?The examined duodenum was normal. Biopsies for histology were taken with ? ? ?a cold forceps for for evaluation of celiac disease. Impression: ? ? - Esophageal mucosal changes suggestive of eosinophilic ? esophagitis. Biopsied. ? - Normal stomach. Biopsied. ? - Normal examined duodenum. Biopsied. Colonoscopy Findings: ? ? ?The colon (entire examined portion) appeared normal. Biopsies were taken ? ? ?with a cold forceps for histology. ? ? ?A 5 mm polyp was found at the anus. The polyp was sessile. The polyp was ? ? ?removed with a cold biopsy forceps. Resection and retrieval were ? ? ?complete. Impression: ? - The entire examined colon is normal. Biopsied. ? - One 5 mm polyp at the anus. Resected and retrieved. FINAL DIAGNOSIS 1. Duodenum, biopsy (A) - Duodenal mucosa with no significant pathologic changes. 2. Gastric antrum, biopsy (B) - Chronic active gastritis. - Numerous Helicobacter pylori organisms identified. 3. Distal esophagus, biopsy (C) - Esophageal squamous mucosa with no significant pathologic changes. 4. Mid esophagus, biopsy (D) - Esophageal squamous mucosa with no significant pathologic changes. 5. Proximal esophagus, biopsy (E) - Esophageal squamous mucosa with no significant pathologic changes. 6. Random colon, biopsy (F) - Colonic mucosa with no significant pathologic changes. 7. Anal canal, biopsy (G) - High grade squamous intraepithelial lesion Patient was notified 07/06/15 of the positive Hpylori. prescriptions sent. The patient cancelled her follow up with Dr. George and didn't follow through with the stool check for Hpylori after treatment. Presenting complaint: The patient presents today reporting that she is seeing Jen Guzman at the [facility]. She tells me that Jen checked her blood for Hpylori and it was positive, so she was treated again. I have explained to her that the blood test will always be positive. The only way to check now is via stool sample. We will call the office to see if they could send us office notes and lab results. The patient reports that she has been on dicyclomine in the past. She tells me that Jen tried something else, but she doesn't know the name of it. Se can't recall if it worked or not. She is now back on the dicyclomine. She tells me that she is taking it 4 times a day. Still with intermittent abdominal pain. Having a bowel movement anywhere from three to six times. Feels that she can't leave the house for fear of having to have a bowel movement. Taking Imodium with some relief. The patient had a tonsillectomy 05/17/17. Short use of pain medication. She thinks it also helped her bowels. Last 6 Encounter Wt Readings: Date: Wt: 08/03/2017 62.6 kg (138 lb) 09/14/2016 56.2 kg (124 lb) 07/06/2016 55.3 kg (122 lb) 05/04/2016 54.4 kg (120 lb) 11/10/2015 52.2 kg (115 lb) 06/18/2015 54.4 kg (120 lb) REVIEW OF SYSTEMS: GENERAL: No weight loss, malaise or fevers HEENT: Tonsillectomy 05/17/17. Negative for frequent or significant headaches, No changes in hearing or vision, no nose bleeds or other nasal problems. NECK: Negative for lumps, goiter, pain and significant neck swelling. RESPIRATORY: Negative for cough, hemoptysis, wheezing, COPD, dyspnea or shortness of breath CARDIOVASCULAR: Negative for chest pain, leg swelling, hypertension, CHF or palpitations GI: The patient states that her appetite has been good. She does get hungry. There has been some nausea, no vomiting. She denies dysphagia and denies odynophagia. There has partially been indigestion without heartburn. There has not been regurgitation. Bowel habits have been irregular. There has been diarrhea. There has not been constipation. The patient denies rectal bleeding. There has not been melena. Intermittent generalized abdominal pain. PSYCH: Positive for depression, anxiety, bipolar - seeing psychiatrist. ENDOCRINE:Negative for thyroid or diabetes. NEURO: No history of headaches, syncope, paralysis, seizures or tremors All other reviewed and negative other than HPI. PAST MEDICAL HISTORY Diagnosis Date - Bipolar affective disorder, currently depressed, moderate (HCC) 07/06/2016 Has been off and on medications since the age of 23 - Dysmenorrhea - Excessive or frequent menstruation Heavy periods - Hypoglycemia 05/14/2015 - Idiopathic chronic hypotension 05/14/2015 - Irritable bowel syndrome with diarrhea 05/04/2016 - Personality disorder 07/06/2016 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 - PTSD (post-traumatic stress disorder) 07/06/2016 PAST SURGICAL HISTORY Procedure Laterality Date - COLONOSCOP W/ OR W/O BRSH SPEC 07/02/15 Colonoscopy with mac - CRYOCAUTERY OF CERVIX 2 times - EGD W/O OR W/BRUSH/WASH 07/02/15 EGD with mac - PAST SURGICAL HISTORY OF csections X 2 - PAST SURGICAL HISTORY OF 1997 Tubal - PAST SURGICAL HISTORY OF 05/27/2015 ablation, endometrial - REMOVAL OF TONSILS,<12 Y/O 05/17/2017 FAMILY HISTORY Problem Relation Age of Onset - Cancer Mother Lung and brain - Cervical Cancer Mother - Breast Cancer Maternal Aunt - Breast Cancer Maternal Aunt Current Outpatient Prescriptions: oxyCODONE-acetaminophen (PERCOCET) 5-325 mg tablet Disp: Rfl: dicyclomine (BENTYL) 20 mg tablet Disp: Rfl: hydrOXYzine pamoate (VISTARIL) 25 mg capsule Disp: Rfl: hyoscyamine (LEVSIN) 0.125 mg tablet Take 1 tablet by mouth every 6 hours as needed. Disp: 120 tablet Rfl: 3 lamoTRIgine (LAMICTAL) 100 mg tablet One tablet twice a day. Disp: 60 tablet Rfl: 2 omeprazole (PRILOSEC) 20 mg capsule Take 1 capsule by mouth daily before breakfast. 1/2 hr before meal. Disp: 30 capsule Rfl: 5 busPIRone (BUSPAR) 15 mg tablet Take 1/2 a tab by mouth twice a day for 2 weeks than one twice a day. Disp: 60 tablet Rfl: 3 ondansetron orally disintegrating (ZOFRAN ODT) 4 mg disintegrating tablet Take 1 tablet by mouth every 6 hours as needed for Nausea/Vomiting. Disp: Rfl: 0 acyclovir (ZOVIRAX) 400 mg tablet Take 1 tablet by mouth three times daily. Three tablets daily for 5 days for fever blisters. Disp: 60 tablet Rfl: 2 No current facility-administered medications for this visit. SOCIAL HISTORY: Patient is single. She quit smoking and alcohol a year ago. PHYSICAL EXAMINATION: Blood pressure 105/69, pulse 76, height 157.5 cm (5' 2), weight 62.6 kg (138 lb). General Appearance: Well appearing, alert, in no acute distress, well-hydrated, well nourished.. Skin: Skin color, texture, turgor normal, no suspicious rashes or lesions. Head: Normocephalic, no masses, lesions, tenderness or abnormalities. Eyes: Anicteric sclera. Pupils are equally round and reactive to light. Extraocular movements are intact. Oropharynx: Lips, mucosa, and tongue normal, oropharynx normal. Neck: Supple, no adenopathy. Lungs: Lungs clear to auscultation. No wheezing, rhonchi, rales. Heart: RRR without murmur. Abdomen: Abdomen soft, vague tenderness upper abdomen. No guarding or rebound. Bowel sounds normal. No masses, organomegaly. Extremities: No deformities, edema, skin discoloration, clubbing or cyanosis. Peripheral Pulses: Normal. Neurologic: Gait normal. Reflexes normal and symmetric. Sensation grossly intact. Impression: Abnormal small bowel study. 2)Functional bowel disorder. 3)lactose intolerance Plan: The patient tells me that she is eating yogurt to get the good bacteria. Only other dairy is hard cheese. She is cutting back on gluten at the suggestion of the radiologist. I have advised her to continue gluten until she sees the vision impaired teacher, so that biopsies can be obtained. Increase dicyclomine to 20mg, 4 times a day, as needed. Stool check for Hpylori. Consult to [facility], as any procedure will need MAC. She agrees with this plan. I have personally interviewed and examined this patient. I have reviewed the information that the MA entered for this encounter. Greater than 30 minutes total time used this visit to review old chart, review new information, update current history and evaluate patient. A majority of the time was spent in discussion and counseling to formulate the plan. Yvonne Hung RN APRN.MADI CNOV Observed: 08/03/2017 Status: COMPLETED Source: [facility] 9:00 AM [facility] REPOSITORY Office Visit (GAST[facility]) BRENDA FLORIAN ([id number]) 1970 F Date Time Provider Department 08/03/17 9:00 AM YVONNE HUNG ([place]AN[place]) [facility] During your visit today, we recorded the following information about you: Pulse Blood pressure Weight Height 76/minute 105/69 62.6 kg 1.575 m Yvonne Hung RN APRN.MADI 08/03/2017 10:00 AM Signed Brenda Florian a 46 year old female who is referred by Dr. House for an opinion regarding an abnormal UGI. My final recommendations will be communicated back to the requesting physician by way of shared Medical Record. The patient reports that she is seeing Jen Guzman NP, at the [facility]. She ordered an UGI. The radiologist called Dr. House, to see about getting a SBFT the same day. UGI-SBFT 07/01/17: IMPRESSION: 1. ?Question some thickening of folds in the stomach, duodenum and proximal jejunum. 2. ?Terminal ileum unremarkable The patient has been seen previously. I initially saw her in consultation on 06/10/15. That note has been reviewed. She was found to be lactose intolerant. Set up for procedures. The patient was seen by Dr. George for upper endoscopy and colonoscopy 07/02/15. The procedure report has been reviewed and findings as follows: EGD Findings: ? ? ?Mucosal changes including ringed esophagus, feline appearance and ? ? ?longitudinal furrows were found in the entire esophagus. Biopsies were ? ? ?taken with a cold forceps for histology. ? ? ?The entire examined stomach was normal. Biopsies were taken with a cold ? ? ?forceps for histology. Biopsies were taken with a cold forceps for ? ? ?Helicobacter pylori testing. ? ? ?The examined duodenum was normal. Biopsies for histology were taken with ? ? ?a cold forceps for for evaluation of celiac disease. Impression: ? ? - Esophageal mucosal changes suggestive of eosinophilic ? esophagitis. Biopsied. ? - Normal stomach. Biopsied. ? - Normal examined duodenum. Biopsied. Colonoscopy Findings: ? ? ?The colon (entire examined portion) appeared normal. Biopsies were taken ? ? ?with a cold forceps for histology. ? ? ?A 5 mm polyp was found at the anus. The polyp was sessile. The polyp was ? ? ?removed with a cold biopsy forceps. Resection and retrieval were ? ? ?complete. Impression: ? - The entire examined colon is normal. Biopsied. ? - One 5 mm polyp at the anus. Resected and retrieved. FINAL DIAGNOSIS 1. Duodenum, biopsy (A) - Duodenal mucosa with no significant pathologic changes. 2. Gastric antrum, biopsy (B) - Chronic active gastritis. - Numerous Helicobacter pylori organisms identified. 3. Distal esophagus, biopsy (C) - Esophageal squamous mucosa with no significant pathologic changes. 4. Mid esophagus, biopsy (D) - Esophageal squamous mucosa with no significant pathologic changes. 5. Proximal esophagus, biopsy (E) - Esophageal squamous mucosa with no significant pathologic changes. 6. Random colon, biopsy (F) - Colonic mucosa with no significant pathologic changes. 7. Anal canal, biopsy (G) - High grade squamous intraepithelial lesion Patient was notified 07/06/15 of the positive Hpylori. prescriptions sent. The patient cancelled her follow up with Dr. George and didn't follow through with the stool check for Hpylori after treatment. Presenting complaint: The patient presents today reporting that she is seeing Jen Guzman at the [facility]. She tells me that Jen checked her blood for Hpylori and it was positive, so she was treated again. I have explained to her that the blood test will always be positive. The only way to check now is via stool sample. We will call the office to see if they could send us office notes and lab results. The patient reports that she has been on dicyclomine in the past. She tells me that Jen tried something else, but she doesn't know the name of it. Se can't recall if it worked or not. She is now back on the dicyclomine. She tells me that she is taking it 4 times a day. Still with intermittent abdominal pain. Having a bowel movement anywhere from three to six times. Feels that she can't leave the house for fear of having to have a bowel movement. Taking Imodium with some relief. The patient had a tonsillectomy 05/17/17. Short use of pain medication. She thinks it also helped her bowels. Last 6 Encounter Wt Readings: Date: Wt: 08/03/2017 62.6 kg (138 lb) 09/14/2016 56.2 kg (124 lb) 07/06/2016 55.3 kg (122 lb) 05/04/2016 54.4 kg (120 lb) 11/10/2015 52.2 kg (115 lb) 06/18/2015 54.4 kg (120 lb) REVIEW OF SYSTEMS: GENERAL: No weight loss, malaise or fevers HEENT: Tonsillectomy 05/17/17. Negative for frequent or significant headaches, No changes in hearing or vision, no nose bleeds or other nasal problems. NECK: Negative for lumps, goiter, pain and significant neck swelling. RESPIRATORY: Negative for cough, hemoptysis, wheezing, COPD, dyspnea or shortness of breath CARDIOVASCULAR: Negative for chest pain, leg swelling, hypertension, CHF or palpitations GI: The patient states that her appetite has been good. She does get hungry. There has been some nausea, no vomiting. She denies dysphagia and denies odynophagia. There has partially been indigestion without heartburn. There has not been regurgitation. Bowel habits have been irregular. There has been diarrhea. There has not been constipation. The patient denies rectal bleeding. There has not been melena. Intermittent generalized abdominal pain. PSYCH: Positive for depression, anxiety, bipolar - seeing psychiatrist. ENDOCRINE:Negative for thyroid or diabetes. NEURO: No history of headaches, syncope, paralysis, seizures or tremors All other reviewed and negative other than HPI. PAST MEDICAL HISTORY Diagnosis Date - Bipolar affective disorder, currently depressed, moderate (HCC) 07/06/2016 Has been off and on medications since the age of 23 - Dysmenorrhea - Excessive or frequent menstruation Heavy periods - Hypoglycemia 05/14/2015 - Idiopathic chronic hypotension 05/14/2015 - Irritable bowel syndrome with diarrhea 05/04/2016 - Personality disorder 07/06/2016 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 - PTSD (post-traumatic stress disorder) 07/06/2016 PAST SURGICAL HISTORY Procedure Laterality Date - COLONOSCOP W/ OR W/O BRSH SPEC 07/02/15 Colonoscopy with mac - CRYOCAUTERY OF CERVIX 2 times - EGD W/O OR W/BRUSH/WASH 07/02/15 EGD with mac - PAST SURGICAL HISTORY OF csections X 2 - PAST SURGICAL HISTORY OF 1997 Tubal - PAST SURGICAL HISTORY OF 05/27/2015 ablation, endometrial - REMOVAL OF TONSILS,<12 Y/O 05/17/2017 FAMILY HISTORY Problem Relation Age of Onset - Cancer Mother Lung and brain - Cervical Cancer Mother - Breast Cancer Maternal Aunt - Breast Cancer Maternal Aunt Current Outpatient Prescriptions: oxyCODONE-acetaminophen (PERCOCET) 5-325 mg tablet Disp: Rfl: dicyclomine (BENTYL) 20 mg tablet Disp: Rfl: hydrOXYzine pamoate (VISTARIL) 25 mg capsule Disp: Rfl: hyoscyamine (LEVSIN) 0.125 mg tablet Take 1 tablet by mouth every 6 hours as needed. Disp: 120 tablet Rfl: 3 lamoTRIgine (LAMICTAL) 100 mg tablet One tablet twice a day. Disp: 60 tablet Rfl: 2 omeprazole (PRILOSEC) 20 mg capsule Take 1 capsule by mouth daily before breakfast. 1/2 hr before meal. Disp: 30 capsule Rfl: 5 busPIRone (BUSPAR) 15 mg tablet Take 1/2 a tab by mouth twice a day for 2 weeks than one twice a day. Disp: 60 tablet Rfl: 3 ondansetron orally disintegrating (ZOFRAN ODT) 4 mg disintegrating tablet Take 1 tablet by mouth every 6 hours as needed for Nausea/Vomiting. Disp: Rfl: 0 acyclovir (ZOVIRAX) 400 mg tablet Take 1 tablet by mouth three times daily. Three tablets daily for 5 days for fever blisters. Disp: 60 tablet Rfl: 2 No current facility-administered medications for this visit. SOCIAL HISTORY: Patient is single. She quit smoking and alcohol a year ago. PHYSICAL EXAMINATION: Blood pressure 105/69, pulse 76, height 157.5 cm (5' 2), weight 62.6 kg (138 lb). General Appearance: Well appearing, alert, in no acute distress, well-hydrated, well nourished.. Skin: Skin color, texture, turgor normal, no suspicious rashes or lesions. Head: Normocephalic, no masses, lesions, tenderness or abnormalities. Eyes: Anicteric sclera. Pupils are equally round and reactive to light. Extraocular movements are intact. Oropharynx: Lips, mucosa, and tongue normal, oropharynx normal. Neck: Supple, no adenopathy. Lungs: Lungs clear to auscultation. No wheezing, rhonchi, rales. Heart: RRR without murmur. Abdomen: Abdomen soft, vague tenderness upper abdomen. No guarding or rebound. Bowel sounds normal. No masses, organomegaly. Extremities: No deformities, edema, skin discoloration, clubbing or cyanosis. Peripheral Pulses: Normal. Neurologic: Gait normal. Reflexes normal and symmetric. Sensation grossly intact. Impression: Abnormal small bowel study. 2)Functional bowel disorder. 3)lactose intolerance Plan: The patient tells me that she is eating yogurt to get the good bacteria. Only other dairy is hard cheese. She is cutting back on gluten at the suggestion of the radiologist. I have advised her to continue gluten until she sees the vision impaired teacher, so that biopsies can be obtained. Increase dicyclomine to 20mg, 4 times a day, as needed. Stool check for Hpylori. Consult to [facility], as any procedure will need MAC. She agrees with this plan. I have personally interviewed and examined this patient. I have reviewed the information that the MA entered for this encounter. Greater than 30 minutes total time used this visit to review old chart, review new information, update current history and evaluate patient. A majority of the time was spent in discussion and counseling to formulate the plan. Yvonne Hung RN PROFESSOR OF EARLY CHILDHOOD EDUCATION.IT ENGINEER Yvonne Hung RN PROFESSOR OF EARLY CHILDHOOD EDUCATION.MADI 08/03/2017 9:40 AM Addendum Return the stool sample to lab. This will check for Hpylori again. I suggest that you stop eating yogurt for a couple weeks and see if the stool frequency decreases. If so, have Jen prescribe a probiotic capsule. Continue dicyclomine. We will increase the dose to 20mg. You can take 2 of the ones you have, each time. See [facility] regarding another upper endoscopy to biopsy the small bowel. Referring Provider: MARY HOUSE [[id number]] Allergies As of Date: 08/03/2017 Noted Allergy Reaction OXYCODONE 05/27/2015 8 - GI Upset Comments: Vomiting and diarrhea Date Reviewed: 08/03/2017 Reviewed by: Analia Hemphill MA - Fully Assessed Reason for Visit: Abdominal Pain [1] Primary Visit Diagnosis:Abnormal x-ray of small bowel [R93.3] Other Visit Diagnosis:Helicobacter pylori infection [A04.8] Order(s):H PYLORI AG BY EIA,STOOL [SQHPYLAG] Order #: [id number] FUTURE CONSULT TO GASTROENTEROLOGY [9067] Order #: [id number]: 1 dicyclomine (BENTYL) 20 mg tabletTake 1 tablet by mouth four times daily as needed.Disp: 120 tabletRfl: 2 Prescriptions as of 08/03/2017 Sig: DICYCLOMINE 20 MG TABLET Take 1 tablet by mouth four t* HYDROXYZINE PAMOATE 25 MG CAP* LAMOTRIGINE 100 MG TABLET One tablet twice a day. OMEPRAZOLE 20 MG CAPSULE,ANDER* Take 1 capsule by mouth daily* BUSPIRONE 15 MG TABLET Take 1/2 a tab by mouth twice* ONDANSETRON 4 MG DISINTEGRATI* Take 1 tablet by mouth every * Problem List As Of Date 08/03/2017 Noted Resolved Idiopathic chronic hypotension [I95.0] INVALID FOR* Priority: A Hypoglycemia [E16.2] INVALID FOR* Priority: B Abnormal uterine bleeding [N93.9] INVALID FOR* Former smoker [Z87.891] INVALID FOR* Nausea and vomiting [R11.2] INVALID FOR*07/02/2015 Lower abdominal pain [R10.30] INVALID FOR*07/02/2015 Diarrhea [R19.7] INVALID FOR*07/02/2015 Irritable bowel syndrome with diarrhea [K58.0] INVALID FOR* Priority: B Bipolar affective disorder, currently depressed*INVALID FOR* Priority: A More... Personality disorder [F60.9] INVALID FOR* Priority: A More... PTSD (post-traumatic stress disorder) [F43.10] INVALID FOR* Priority: A Encounter for lipid screening for cardiovascula*INVALID FOR* Abnormal upper gastrointestinal barium series [*INVALID FOR* Other instructions from your clinician: Return the stool sample to lab. This will check for Hpylori again. I suggest that you stop eating yogurt for a couple weeks and see if the stool frequency decreases. If so, have Jen prescribe a probiotic capsule. Continue dicyclomine. We will increase the dose to 20mg. You can take 2 of the ones you have, each time. See [facility] regarding another upper endoscopy to biopsy the small bowel. Prescriptions ordered this encounter Disp Refills Start End DICYCLOMINE 20 MG TABLET 120 * 2 08/03/2017 Route: ORAL Sig: Take 1 tablet by mouth four times daily as needed. Medications Discontinued During This Encounter hyoscyamine (LEVSIN) 0.125 mg tablet 120 * 3 09/14/2016 08/03/2017 Route: ORAL Sig: Take 1 tablet by mouth every 6 hours as needed. Disc: Course of therapy completed dicyclomine (BENTYL) 20 mg tablet 04/21/2017 08/03/2017 Class: Historical Med Sig: Disc: Reason for discontinue is not on file. acyclovir (ZOVIRAX) 400 mg tablet 60 t* 2 05/04/2016 08/03/2017 Route: ORAL Sig: Take 1 tablet by mouth three times daily. Three tablets daily for 5 days for fever blisters. Disc: Reason for discontinue is not on file. oxyCODONE-acetaminophen (PERCOCET) 5* 05/23/2017 08/03/2017 Class: Historical Med Sig: Disc: Reason for discontinue is not on file. Follow-up and Disposition History Recorded Encounter Status:Closed by YVONNE HUNG CNP on 08/03/17 XR UPPER GI W SMALL Observed: 07/01/2017 Status: F Source: [facility] BOWEL SERIES 1:36 PM CLINIC OTHER CAMPUS REPOSITORY * * *Final Report* * * DATE OF EXAM: Jul 01 2017 1:36PM MDX 5381 - XR UPPER GI W SMALL BOWEL SERIES / PROCEDURE REASON: EPIGASTRIC PAIN R10.13 * * * * Physician Interpretation * * * * Study: Upper GI and Small bowel seires single contrast study. HISTORY: Indication: EPIGASTRIC PAIN R10.13 TECHNIQUE: Radiation time: 2:26 Images obtained: Multiple spot film images under fluoroscopic guidance. Comparison: NONE. RESULT: Findings: Esophagus: Swallowing function unremarkable.. No hiatal hernia is seen. No gastroesophageal reflux identified. Stomach: The stomach showed no evidence of persistent filling defects,ulceration or mass lesions. Question some thickening of the folds in the stomach Small bowel findings: Question thickening of folds in the duodenum and proximal jejunum. Terminal ileum was unremarkable. No evidence of ulceration. Normal transit time. IMPRESSION: 1. Question some thickening of folds in the stomach, duodenum and proximal jejunum.. 2. Terminal ileum unremarkable Phlebotomy Manager: [facility] Transcribe Date/Time: Jul 01 2017 4:04P Dictated by : PREMA DALLAS DO This examination was interpreted and the report reviewed and electronically signed by: PREMA DALLAS DO on Jul 01 2017 4:07PM EST [id number] TONSILS Observed: 05/17/2017 Status: F Source: [facility] 12:00 AM [facility] [place] REPOSITORY Patient: BRENDA FLORIAN : 1970 (46/F) Acct Num: [id number] Phys: Jamaal BAUMANN,Terrance Unit Num: [id number] Loc: LABSPEC Specimen: [id number] Received: 05/17/17 - 1547 Spec Type: TONSILS TISSUES TISSUES: Tonsil, NOS GROSS DESCRIPTION Received is one container labeled with the patient's name and designated tonsils - pin on right are two tonsils that in aggregate weigh 5.7 gm. The right tonsil has a pin on it and measures 2 x 1.5 x 1 cm. The left tonsil measures 3.5 x 2 x 1 cm. Both tonsils are similar in appearance. The external surfaces are pink-nixon, smooth, glistening and somewhat lobulated. Focally they are hemorrhagic, granular and bear cautery artifact. Serial cross sections through the tonsils reveal normal tonsillar architecture. Sections are submitted in two cassettes as follows: 1 - right tonsil, 2 - left tonsil. / KRISTYN:tu 05/18/17 TC:2 CPT: 02546 x2 HEADER OPERATION: Tonsillectomy PRE-OP DIAGNOSIS: Chronic tonsillitis, acute recurrent streptococcal tonsillitis TISSUE SUBMITTED: Tonsils, right pinned MICROSCOPIC DESCRIPTION Slides are reviewed. MICROSCOPIC DIAGNOSIS Bilateral tonsils: Reactive lymphoid hyperplasia, consistent with chronic tonsillitis. Superficial acute inflammation. Focal actinomyces colonization. KRISTYN:tu 05/19/17 Signed Chi Murphy 05/19/17 <signature on file> Performed By: #### PTONS #### [facility] [address] [place] [address]. [place], [address] HELICO PYLORI AB Collected: 02/07/2017 Status: F Source: MARQUEZ 3:29 PM CLINIC REFERENCE REPOSITORY TYPE CODE TESTS RESULT OUT OF RANGE REFERENCE UNITS LAB HPYLRL(LAMAR Negative NC) Abnormal H. pylori Positive IgG, Qual LAB HPYLR(LOIN U/mL C) H pylori 1.2 Ab, IgG HPV W/GENOTYPE Collected: 01/12/2017 Status: F Source: MAR[place] 2:42 PM CLINIC REFERENCE REPOSITORY TYPE CODE TESTS RESULT OUT OF REFERENCE UNITS RANGE LAB HPVT16(LOIN C) HPV HighRisk NHPV16 Type 16 LAB HPVT18(LOIN C) HPV HighRisk NHPV18 Type 18 LAB HPVHRO(LOIN C) HPV HighRisk PCR. Other ALLERGIES ALLERGIES DATE TYPE / CODE NAME / CODE REACTION SEVERITY SOURCE 06/22/2016 Drug No Known Unknown [facility] Allergy/416 Allergies/R75343 Hospital 328866(SNOM 0388(RXNORM) Repository ED CT) 05/27/2015 DRUG OXYCODONE GI UPSET [facility] INGREDI/419 Other [place] 515988(SNOM Repository ED CT) ENCOUNTERS ENCOUNTERS ADMIT/DISCHARGE ACCOUNT ADMITTING ENCOUNTER LOCATION SOURCE NUMBER CLASS 03/06/2018 [id number] [facility] ing:OPBI Repository 02/01/2018 [id number] [facility] ing:SL Repository 11/25/2017/11/26/19 [id number] Ambulatory [address] Main [place] Repository 09/14/2017/09/15/19 [id number] Ambulatory [address] Repository 09/06/2017/09/08/19 [id number] Ambulatory [address] Repository 08/03/2017/08/04/19 [id number] Ambulatory [address] Repository 07/01/2017 [id number] Ambulatory [facility] Other [place] Repository 05/17/2017 [id number] [facility] ing:LABSPEC Repository PAYERS PAYERS ENCOUNTER GUARANTOR PAYER SUBSCRIBER SOURCE 03/06/2018 BRENDA L Primary BRENDA L [place] [id number] Insurance[facility]CARESOURCEP [facility] Number: [id number] [id number] Repository [address]Ilw: (234) Date:2018-01-17P O [phone] () [address]ATTN: [place] [address]LT: 03/06/2018 Secondary NOT GIVENUNK Aysha Insurance:SELF PAY [facility] Number: Effective Repository Date:2018-01-17 02/01/2018 BRENDA L Primary BRENDA L [place] [id number] [facility] Number: [id number] [id number] Repository [address]Jmt: (330) Date:2018-01-23P O [phone] () [address]ATTN: [place] [address]YZ: 02/01/2018 Secondary NOT GIVENUNK [place] Insurance:SELF PAY [facility] Number: Effective Repository Date:2018-01-23 05/17/2017 BRENDA Primary BRENDA [place] [id number] Insurance:CARESOTED GRIMESB: [facility] Number: [id number] [id number] Repository [address]Gjh: ([phone]) Date:2017-05-17P O [phone] () [address]ATTN: [place] [address]SY: 05/17/2017 Secondary NOT GIVENUNK [place] Insurance:SELF PAY [facility] Number: Effective Repository Date:2017-05-17
== END ==
PROVIDERS: Family Provider Family Medicine; PCP Family Medicine
DX: Z12.31 Encounter for screening mammogram for malignant neoplasm of breast (principal)
CPT/HCPCS: 77063; 77067

== ENCOUNTER → 2018-11-28 | Outpatient (CLI) | payer MEDICAID, SELFPAY ==
--- NOTE | 2018-11-28 11:20 | US_ITS ---
STUDY: ULTRASOUND OF THE FEMALE PELVIS - COMPLETE REASON FOR EXAM: Female, 47 years old. Irregular bleeding. Novasure ablation LMP: 11/24/2018. TECHNIQUE: Transabdominal and Transvaginal TECHNICAL QUALITY: Adequate. COMPARISON: None. FINDINGS: Uterus is anteverted and measures 9.5 x 5.6 x 5.1 cm. Normal endometrial thickness measuring 4 mm. Complex cyst within the endometrium measuring 1.3 x 1.2 x 1.0 cm. There are no endometrial masses, and there is no fluid in the endometrial cavity. Normal uterine cervix. Normal right ovary, measuring 3.4 x 2.5 x 3.1 cm. There are multiple follicles without a dominant cyst. Normal left ovary, measuring 2.8 x 2.4 x 2.2 cm. Simple ovarian cyst measuring 1.7 x 1.6 x 1.4 cm. Small amount of free fluid in the cul-de-sac. 1.5 x 1.4 x 1.2 cm nabothian cyst. 2.5 x 2.5 x 1.7 cm complex cyst on the cervix. Limited images of the bladder are unremarkable. US/Transvaginal Non- IMPRESSION: 1.3 cm complex endometrial cyst. 2.5 cm complex cervical cyst. Simple left ovarian cyst compatible with a physiologic cyst. Small amount of free fluid in the cul-de-sac which is a nonspecific finding often related to rupture of an ovarian cyst. Consider correlation with MRI as well as clinical exam. Electronically Signed: Ez Peña MD at 4:40 EDT , Service support ,
--- NOTE | 2018-11-28 11:20 | US_ITS ---
STUDY: ULTRASOUND TRANSVAGINAL CLINICAL: Female, 47 years old. Irregular bleeding. History of novasure ablation. TECHNIQUE: Transvaginal COMPARISON: None. FINDINGS: Uterus is anteverted and measures 9.5 x 5.6 x 5.1 cm. Normal endometrial thickness measuring 4 mm. Complex cyst within the endometrium measuring 1.3 x 1.2 x 1.0 cm. There are no endometrial masses, and there is no fluid in the endometrial cavity. Normal uterine cervix. Normal right ovary, measuring 3.4 x 2.5 x 3.1 cm. There are multiple follicles without a dominant cyst. Normal left ovary, measuring 2.8 x 2.4 x 2.2 cm. Simple ovarian cyst measuring 1.7 x 1.6 x 1.4 cm. Small amount of free fluid in the cul-de-sac. 1.5 x 1.4 x 1.2 cm nabothian cyst. 2.5 x 2.5 x 1.7 cm complex cyst on the cervix. Limited images of the bladder are unremarkable. US/Pelvic (Non ) IMPRESSION: 1.3 cm complex endometrial cyst. 2.5 cm complex cervical cyst. Simple left ovarian cyst compatible with a physiologic cyst. Small amount of free fluid in the cul-de-sac which is a nonspecific finding often related to rupture of an ovarian cyst. Consider correlation with MRI as well as clinical exam. Electronically Signed: Ez Peña MD at 3:53 EDT , Service support ,
== END | disposition home or self-care (01) ==
LOC: US 11:18
DX: N92.6 Irregular menstruation, unspecified (principal); R10.84 Generalized abdominal pain
CPT/HCPCS: 76830; 76856; 93976

== ENCOUNTER → 2019-02-13 12:22 | Outpatient (CLI) | payer MEDICAID, SELFPAY ==
--- NOTE | 2019-02-13 12:31 | MRI_ITS ---
STUDY: MR PELVIS WITH T WITHOUT CONTRAST REASON FOR EXAM: Female, 48 years old. Pelvic pain, mass TECHNIQUE: Standardized fat and water weighted pulse sequences were obtained in all 3 orthogonal planes, pre-and post contrast administration. IV Dotarem 15 was administered for the contrast portion of the examination. COMPARISON: None. FINDINGS: Normal urinary bladder. Hollow viscus structures are unremarkable.. The uterus measures 5.0 x 5.5 x 7.7 cm. There is heterogeneous myometrial signal intensity with indistinct endometrial complex margins. 8 mm hypointense (T1) lesion of the anterior uterine fundus does not demonstrate enhancement, likely representing a uterine fibroid. There is a defect along the lower uterine segment anteriorly likely related to prior section. Just deep to this region within the endometrial complex, there is a nonenhancing T1 bright and T2 bright lesion measuring 6 mm, correlating to subendometrial tiny cyst along the uterine fundus is seen on image 20 of series 7. There are complex but nonenhancing nabothian cysts of the cervix. There is no pelvic fluid. There is no pelvic mass lesion or lymphadenopathy. Normal visualized pelvic arteries. Normal osseous structures. Normal abdominal wall. 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 MRI/Pelvis W/WO Contrast IMPRESSION: 1. Indistinct endometrial complex/junctional zone with subendometrial nonenhancing cysts. Findings most likely represents adenomyosis. No suspicious enhancing masses are seen. 2. Subcentimeter uterine myometrial fibroid. 3. Nabothian cysts. Electronically Signed: Hollis Hernandez MD (Brooks) at 16:42 EST , Service support ,
== END ==
DX: R19.09 Other intra-abdominal and pelvic swelling, mass and lump (principal)
CPT/HCPCS: 72197; A9575

== ENCOUNTER → 2019-02-21 09:35 | Outpatient (CLI) | payer MEDICAID, SELFPAY ==
[2019-02-21 09:26] VITALS: BMI 22.6
--- NOTE | 2019-02-21 09:36 | RAD_ITS ---
STUDY: X-RAY - CERVICAL SPINE REASON FOR EXAM: Female, 48 years old. Right-sided numbness, pain TECHNIQUE: 5 view(s) of the cervical spine were obtained. COMPARISON: None FINDINGS: Normal anterior atlantoaxial articulation. Normal odontoid process. Normal cervical lordosis. Normal vertebral bodies. Mild spurring at the lower cervical endplates. Slightly narrowed C6-7 disc space. Normal visualized intervertebral neuroforamina. The soft tissue structures are unremarkable. RAD/Cerv Spine 4 or 5 Views IMPRESSION: Mild degenerative changes of the lower cervical spine. Electronically Signed: Tao Garcia DO at 23:56 EST Tel [phone], Service support ,
--- NOTE | 2019-02-21 09:36 | RAD_ITS ---
STUDY: X-RAY - RIGHT ELBOW REASON FOR EXAM: Female, 48 years old. Pain TECHNIQUE: 3 view(s) of the elbow. COMPARISON: None. FINDINGS: Normal visualized humerus, radius and ulna. Normal radiocapitellar and ulnotrochlear articulations. The soft tissue structures are unremarkable. RAD/Elbow min 3 Views IMPRESSION: Normal x-ray examination of the elbow. Electronically Signed: Tao Garcia DO at 23:53 EST Tel [phone], Service support ,
== END ==
PROVIDERS: Referring Provider Orthopaedic Surgery; Visit Provider Orthopaedic Surgery
DX: M54.2 Cervicalgia (principal); M25.521 Pain in right elbow
CPT/HCPCS: 72050; 73080

== ENCOUNTER 2019-04-16 18:30 | Outpatient (RCR) | payer MEDICAID, SELFPAY ==
[2019-02-21 09:26] VITALS: BMI 22.6
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
--- NOTE | 2019-02-28 09:08 | HP.OTEVAL_ITS ---
Patient's Visit Information BRENDA FLORIAN is a 48 year old F, referred to Occupational Therapy by Pablo Lee DO, with a diagnosis of R medial epicondylitis. Date of Evaluation: 02/27/19 Occupational Therapist: Karen Berger - Subjective Subjective: Pt seen for initial occupational therapy for medial epicondylitis that she has had for about one year. Pt states she was cleaning her carpets last february and started to have increased pain R medial elbow and it has hurt since. Pt states broke R wrist 10 yrs ago. Pt is R hand dominent. Indep w/ BADLs and IADLs, pt using energy conservation with cleaning to try and limit pain R elbow. Pt had injection R elbow first week of February 2019. 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 Pt states has R elbow brace but not wearing that as of now. Pt also seeing PT for cervical neck pain. 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 Goal:: Pt will progress w/ AROM R elbow flexion by 20' to assist w/ IADL tasks independently. Goal:: Pt will demo no pain greater than 1/10 with movement of R elbow by d/c from OT services. Goal:: Pt will be educated on joint protection/energy conservation techniques R UE with good understanding and demo 100%x Goal:: Pt will be educated on R UE HEP with good understanding and demo 100%x - Rehabilitation General Assessment: Pt demo increased edema, increased pain and decreased strength of R elbow and hand demonstrating a need for skilled OT interventions to decrease pain, educate on joint protection and R UE HEP, increase strength of R UE to increase pts quality of life 1-2x/wk x 4-6wks. Rehabilitation Potential: Excellent - Anticipated Interventions Anticipated Interventions: A/AAROM/PROM, Strengthening, Edema Control, Massage, Triggerpoint Release, Modalities, Orthoses, Joint Protection/Energy Conservation, Education re Diagnosis, Home Program - Visit Plan Frequency: 1-2x /Week Duration: 4-6 Weeks General Plan: increase R arm strength and ROM, decrease R UE pain, educate on joint protection and R UE HEP. TEXT: Thank you for the opportunity to evaluate your patient. For Medicare and Medicare HMO plans, please review the plan of care and approve it. It will need to be FAXED BACK to us at [phone] for Medicare purposes. Please let me know if there are questions or concerns regarding this plan of care. Physician Signature: Date:
--- NOTE | 2019-06-08 08:58 | HP.PT.NRP ---
BRENDA FLORIAN was seen in my office for initial evaluation on 02/27/19. The following Plan of Care was established for this patient: Initial Frequency: 2-3x /Week Initial Duration: 4-6 Weeks Patient/Client Instruction: Educate patient on: Condition, Plan of Care, Risk Factors, Benefits of Fitness Program For the Purpose of:: To improve self management Therapeutic Exercise to Include: Strength training, Endurance training, Body mechanics, Postural training, Flexibilty training, Scapular Strength/Stabilization For the Purpose of:: To decrease pain, To increase ROM, To improve muscle performance and motor function, To increase tolerance to activity/condition/position, To improve ability of physical actions for home/community/work/leisure Cryotherapy (ice pack, ice massage): Yes Thermo therapy (hot pack): Yes Ultrasound (thermal/non thermal): Yes For the Purpose of:: To decrease pain, To improve nutrient delivery to tissue This patient was last seen in our office . Pertinent comments regarding their Physical therapy will appear below: At this point I will be discontinuing this patient from physical therapy. I would be happy to see this patient again in the future if found appropriate by the physician. Thank you! Carlos Diaz, PT, Cert MDT, OCS
--- NOTE | 2019-06-08 09:01 | HP.PT.NRP ---
BRENDA FLORIAN was seen in my office for initial evaluation on 02/27/19. The following Plan of Care was established for this patient: Initial Frequency: 2-3x /Week Initial Duration: 4-6 Weeks Patient/Client Instruction: Educate patient on: Condition, Plan of Care, Risk Factors, Benefits of Fitness Program For the Purpose of:: To improve self management Therapeutic Exercise to Include: Strength training, Endurance training, Body mechanics, Postural training, Flexibilty training, Scapular Strength/Stabilization For the Purpose of:: To decrease pain, To increase ROM, To improve muscle performance and motor function, To increase tolerance to activity/condition/position, To improve ability of physical actions for home/community/work/leisure Cryotherapy (ice pack, ice massage): Yes Thermo therapy (hot pack): Yes Ultrasound (thermal/non thermal): Yes For the Purpose of:: To decrease pain, To improve nutrient delivery to tissue This patient was last seen in our office . Pertinent comments regarding their Physical therapy will appear below: Patient seen for PT for modalties and manual therapy -cervical traction techniques for cervical pain. At this point I will be discontinuing this patient from physical therapy. I would be happy to see this patient again in the future if found appropriate by the physician. Thank you! Carlos Diaz, PT, Cert MDT, OCS
== END 2019-04-16 19:00 | disposition home or self-care (01) ==
LOC: PT 18:30
PROVIDERS: Referring Provider Orthopaedic Surgery; Visit Provider Orthopaedic Surgery
DX: M77.01 Medial epicondylitis, right elbow (principal); M50.30 Other cervical disc degeneration, unspecified cervical region
CPT/HCPCS: 97035; 97110; 97140; 97162; 97165; 97166; 97530

== ENCOUNTER 2019-05-03 10:49 | Observation (INO) | payer MEDICAID, SELFPAY ==
[2019-04-04 09:04] VITALS: BMI 30.9
[2019-05-03] VITALS (14 sets, daily range): BP systolic 84–118; BP diastolic 43–67; PULSE 69–87; RESP 12–18; TEMP 36.4–36.9; O2SAT 91–100; BMI 31.9
[2019-05-03 07:05] LABS: Bedside Glucose 90 mg/dL (70-110)
[2019-05-03 07:05] LABS: Internal QC Validated? YES +Cl - CLEAR BKGD; Pregnancy, Urine Negative Negative
[2019-05-03] MEDS: Lactated Ringers 1,000 ML 40 ML IV ×2 (07:20→10:00)
[2019-05-03 07:31] LABS: Hematocrit 39.1 % (37-47); Hemoglobin 12.9 g/dL (12.0-15.0); Mean Corpuscular Hgb 28.9 pg (27.0-32.0); Mean Corpuscular Volume 87.7 fL (81-99); Mean Platelet Vol. 9.8 fl (6.2-12.0); Platelet Count 352 K/mm3 (150-450); RBC Distribution Width CV 13.7 % (11.6-14.6); Red Blood Count 4.46 M/mm3 (4.2-5.4); White Blood Count 10.1 K/mm3 (4.4-11.0)
[2019-05-03] MEDS: Acetaminophen 500 MG Tablet 1000 MG PO ×3 (07:33→23:58)
[2019-05-03] MEDS: Scopolamine 1mg/72hr Patch 1 PATCH TRANSDERM. (07:33)
[2019-05-03] MEDS: Celecoxib 200 MG Capsule 400 MG PO (07:34)
[2019-05-03] MEDS: Phenazopyridine 95 MG Tablet 190 MG PO (07:34)
[2019-05-03] MEDS: Gabapentin 600 MG Tablet PO (07:34)
[2019-05-03] MEDS: Enoxaparin 40 MG/0.4 ML Syringe SC (07:40)
[2019-05-03 07:55] LABS: Thyroid Stim Hormone (TSH) 9.25 uIU/mL (0.358-3.74)
[2019-05-03] MEDS: Magnesium Sulfate 4gm/100mL 4 GM/100 ML IV.SOLN. IV (08:01)
--- NOTE | 2019-05-03 09:00 | HYST_PTH ---
PATIENT: BRENDA FLORIAN LOC: MS3 U#:[id number] AGE/SX: 48/F ROOM: CA304 RE05/03/[address]: Dr. Ruba Purcell MD : 1970 BED: 1 DIS: 05/04/2019 SPEC #: [id number] RECD: 05/03/19 13:23 STATUS: THANIA REMorro #: [id number] SUZIE: 05/03/19 09:[address]: Ruba Purcell DEPT: SURGICAL PATHOLOGY RECD BY: Ishaan Carson ENTERED: 05/03/19 13:58 SP TYPE: HYSTERECT OTHR DR: Jen Guzman, FLIGHT AGENT-C [facility] Tissues: Uterus, NOS Procedures: Surgery Specimen Level V HEADER OPERATION: ERAS, laparoscopic vaginal hysterectomy, bilateral salpingectomy PRE-OP DIAGNOSIS: Abnormal uterine bleeding; adenomyosis, status post endometrial ablation TISSUE SUBMITTED: Uterus, bilateral fallopian tubes MICROSCOPIC DIAGNOSIS Uterus, hysterectomy: Cervix - nabothian cysts. Endometrium - previously ablated. Myometrium - adenomyosis and leiomyoma. Right fallopian tube - hemosalpinx. Left fallopian tube - no pathologic change. AM:tu 05/04/19 MICROSCOPIC DESCRIPTION Slides are reviewed. GROSS DESCRIPTION Received in fixative is one container labeled with the patient's name and designated uterus. The specimen consists of a uterus with attached cervix, attached portion of right fallopian tube and detached left fallopian tube. The uterus with cervix measures 9.5 x 7 x 4.5 cm and weighs 116 gm. The anterior surface of the uterus is disrupted. The ectocervix is grossly unremarkable. The endocervical canal measures 3 cm in length and is grossly unremarkable. The triangular endometrial cavity measures 3 cm in length and 2.5 cm in greatest width. The reddish-nixon endometrium measures up to 0.1 cm in thickness. The myometrium measures 2 cm in greatest dimension and contains a white, firm, rubbery nodule measuring 1.5 cm in greatest dimension and resembling a leiomyoma. The right fallopian tube measures 5.6 cm in length and 0.8 cm in average thickness. Serial sections reveal bloody material in the lumen. The left fallopian tube measures 3.5 cm in length and 0.7 cm in average diameter. Financial Planning Adviser sections are submitted in nine cassettes as follows: 1 - anterior cervix, 2 - posterior cervix, 3 & 4 - anterior uterine wall, 5 & 6 - posterior uterine wall, 7 - right fallopian tube, 8 - left fallopian tube, 9??myometrial mass. / AM:tu 05/03/19 TC:1 CPT: 36008
[2019-05-03] MEDS: Cefazolin 2 GM in 0.9% Normal Saline 100 ML IV (09:33)
[2019-05-03] MEDS: dexAMETHasone 10 MG/ML Vial 8 MG IV (09:34)
[2019-05-03] MEDS: Lubricating Jelly 60 GM Tube 30 GM TOPICAL (09:40)
[2019-05-03] MEDS: Bupivacaine Mpf 0.5% 30 ML VIAL (09:50)
[2019-05-03] MEDS: Ondansetron 4 MG/2 ML Vial IV (10:30)
--- NOTE | 2019-05-03 10:55 | OP.PCM_ITS ---
Report of Operation Date of Procedure: 05/03/19 Pre-Operative Diagnosis: abnormal uterine bleeding, dysmenorrhea, s/p endo metrial ablation, adenomyosis Post-Operative Diagnosis: same Surgery/Procedure Performed:: Laparoscopic-assisted vaginal hysterectomy with bilateral salpingectomy Description of Surgical Findings:: Boggy uterus, tubes with evidence of previous tubal ligation, normal ovaries. Otherwise unremarkable peritoneal cavity without any significant adhesions. historian dramatic arts: Yu Hopkins Type of Anesthesia:: General Anesthesiologist: Valerio Bhardwaj Special Medications: ERAS protocol Specimen's removed: uterus, cervix, bilateral tubes Drains: farr Estimated Blood Loss (mL): 30 Fluids Replaced: 1400 cc Description of Procedure: The patient was taken to the operating room where she was prepped and draped in the dorsal lithotomy position. Her arms were tucked to the side and padded and her legs were placed in the yellowfin stirrups. Care was taken to ensure that she was placed in a neurologically safe and neutral position. A weighted speculum was placed in the vagina and the anterior lip of the cervix was grasped with a single-tooth tenaculum. The uterus sounded to 7 centimeters. The Beryl uterine manipulator was placed and secured. The Farr catheter was placed to straight drain. Attention was turned to the abdominal portion of the case. Before skin incisions were made they were infiltrated with 0.5% Marcaine solution for local anesthetic. A 5 mm intraumbilical incision was made and while tenting the anterior abdominal wall up with towel clamps a 5 mm blade less trocar and sleeve were advanced directly into the peritoneal cavity. Peritoneal placement was confirmed with the laparoscope the pneumoperitoneum was created, and the underlying abdominal contents were intact. The patient was placed in Trendelenburg and the above findings were noted. Right and left lateral 5 mm trochars were placed under direct visualization without difficulty. The antimesenteric portion of the tube was clamped sealed and transected serially on both sides with the LigaSure device. The round ligaments were clamped sealed and transected and a window was made in the peritoneum. The utero-ovarian ligaments were then clamped, sealed and transected with the LigaSure device and the pedicles were hemostatic The bladder flap was dissected down with the LigaSure device and blunt dissection and the uterine arteries were then skeletonized. The uterine arteries were clamped, sealed and transected on both sides with the LigaSure device. At this point the pedicles were all examined and found to be hemostatic. Attention was turned to the vaginal portion of the case. 1% lidocaine with dilute epinephrine solution was used to infiltrate the anterior vaginal epithelium over the cervix. An incision was made from 3 to 9:00 across the anterior vaginal epithelium and the vaginal epithelium was dissected back with blunt sharp dissection. The anterior colpotomy incision was made. The vaginal epithelium on each side of the cervix at 3 and 9:00 was clamped, transected and suture ligated. The next pedicle contained the anterior peritoneum and part of the cardinal ligament. The pedicle was was clamped with a Adalgisa clamp, transected and suture-ligated. Hemostasis was noted. The uterine fundus was brought through the anterior colpotomy incision. The uterosacral ligaments and vaginal cuff were secured with Adalgisa clamps. The pedicles were transected. The uterus and cervix were then amputated and removed. The pedicles were secured with an 0 Vicryl suture. At this point, the pedicles were all examined and hemostasis was assured. A [id number] was needed in the midline and the vaginal cuff between the uterosacrals to tack the peritoneum down to the posterior vaginal wall. The vaginal cuff was then closed in a horizontal fashion with interrupted 0 Vicryl [id number] sutures. Care was taken to secure the vagina to the uterosacral ligaments. Vaginal cuff was hemostatic and well supported. A sponge stick was placed in the vagina to help place traction against the vaginal cuff. The laparoscope was reinserted into the abdomen and the pneumoperitoneum was re- created. The pedicles were reexamined and found to be hemostatic. The vaginal cuff was hemostatic. Both ureters were seen peristalsing at the end of the case. The right and left lateral ports were taken out and the sites were hemostatic. The pneumoperitoneum was released and even under low pressure there was no bleeding of any of the pedicles are vaginal cuff. The umbilical port was removed. The umbilical skin incisions were closed with Monocryl suture and skin glue. The vaginal instruments were removed by me and a vaginal sweep was completed by me. The entire procedure was performed with by me with assistance. There were no qualified residents available for this procedure. All sponge lap and needle counts were correct and the patient was transferred to the recovery room in stable condition. Grafts/Implants Used: none - Complications none - Admit VTE Documentation VTE Present on Admission: No VTE Mechan Device Prophylaxis: SCD's VTE Pharm Prophylaxis ordered?: Yes
[2019-05-03] MEDS: Ketorolac 30 MG/ML Syringe IV ×3 (12:16→23:57)
[2019-05-03] MEDS: oxyCODONE 5 MG Tablet PO ×2 (16:01→20:05)
--- NOTE | 2019-05-03 18:05 | NURSING ---
meds verified w/gurinder mcmahon rn. scanner not working
--- NOTE | 2019-05-03 20:55 | NURSING ---
Pt very shaky. Pt walked the hallway only custodial with asst of 2
[2019-05-03] MEDS: Docusate Sodium 100 MG Capsule PO (21:00)
[2019-05-03] MEDS: Diphenoxylate/Atrop 1 Tablet PO (21:00)
[2019-05-03] MEDS: lamoTRIgine 100 MG Tablet 200 MG PO (21:00)
[2019-05-03] MEDS: Lithium Carbonate 300mg Capsule 600 MG PO (21:01)
[2019-05-04 03:30] VITALS: BP 108/60; PULSE 60; RESP 17; TEMP 36.6; O2SAT 98
[2019-05-04] MEDS: oxyCODONE 5 MG Tablet PO ×3 (04:08→16:20)
[2019-05-04] MEDS: Ketorolac 30 MG/ML Syringe IV ×2 (05:06→11:13)
[2019-05-04] MEDS: Acetaminophen 500 MG Tablet 1000 MG PO ×2 (05:06→11:12)
[2019-05-04] MEDS: Levothyroxine 25 MCG TABLET PO (05:06)
--- NOTE | 2019-05-04 05:16 | NURSING ---
farr d/c . pt tolerated it well
[2019-05-04 05:46] LABS: Hematocrit 36.1 % (37-47); Hemoglobin 11.6 g/dL (12.0-15.0); Mean Corp Hgb Conc 32.1 g/dL (32-36); Mean Corpuscular Hgb 28.4 pg (27.0-32.0); Mean Corpuscular Volume 88.5 fL (81-99); Platelet Count 332 K/mm3 (150-450); RBC Distribution Width CV 13.9 % (11.6-14.6); RBC Distribution Width SD 45.1 fl (35.1-43.9); Red Blood Count 4.08 M/mm3 (4.2-5.4); White Blood Count 14.4 K/mm3 (4.4-11.0)
[2019-05-04 07:52] VITALS: O2SAT 91
[2019-05-04 08:00] VITALS: BP 125/76; PULSE 65; RESP 14; TEMP 36.9; O2SAT 97
--- NOTE | 2019-05-04 08:31 | PN.OBGYN_ITS ---
Subjective: pain well controlled, average lochia. no VB - Physical Exam Vitals/I&O's: Vital Signs Temp Pulse Resp BP Pulse Ox 97.8 F 60 17 108/60 91 05/04/19 03:30 05/04/19 03:30 05/04/19 03:30 05/04/19 03:30 05/04/19 07:52 Oxygen Flow Rate (L/min) 6 Oxygen Delivery Method Room Air Weight: 78 kg Body Mass Index (BMI) 31.9 Finger Stick Blood Glucose 90 Intake and Output for Last 24 Hours 05/02/19 05/03/19 05/04/19 23:59 23:59 23:59 Intake Total 1970.78 / 1969.78 760 / 760 Output Total 1920 / 1920 1100 / 1100 Balance 50.78 / 50.78 -340 / -340 General: Alert, Cooperative, No apparent distress Abdomen: Soft, Tender - appropriately tender Extremities: No edema Skin: Incision - they are clean dry and intact Laboratory Results 05/03/19 07:00: Blood Type A POSITIVE, Antibody Screen NEGATIVE 05/04/19 05:08: WBC 14.4 H, RBC 4.08 L, Hgb 11.6 L, Hct 36.1 L, MCV 88.5, MCH 28.4, MCHC 32.1, RDW Std Deviation 45.1 H, RDW Coeff of Aleksandr 13.9, Plt Count 332, MPV 10.0 Current Medications Acetaminophen (Tylenol) 1,000 mg PO Q6 [facility] Last Admin: 05/04/19 05:06 Dose: 1,000 mg Documented by: Diphenoxylate HCl/Atropine (Lomotil) 1 tablet PO BID [facility] Last Admin: 05/03/19 21:00 Dose: 1 tablet Documented by: Docusate Sodium (Colace) 100 mg PO BID [facility] Last Admin: 05/03/19 21:00 Dose: 100 mg Documented by: Enoxaparin Sodium (Lovenox) 40 mg SC DAILY [facility] Hydroxyzine Pamoate (Vistaril Pamoate Capsule) 100 mg PO DAILY [facility] Lactated Ringer's () 1,000 mls @ 40 mls/hr IV .Q25H [facility] Stop: 05/04/19 11:09 Last Admin: 05/04/19 02:11 Dose: Not Given Documented by: Ketorolac Tromethamine (Toradol (Bkc)) 30 mg IV Q6 [facility] Stop: 05/04/19 18:01 Last Admin: 05/04/19 05:06 Dose: 30 mg Documented by: Lamotrigine (Lamictal) 200 mg PO BID [facility] Last Admin: 05/03/19 21:00 Dose: 200 mg Documented by: Levothyroxine Sodium (Synthroid) 25 mcg PO DAILY@0600 [facility] Last Admin: 05/04/19 05:06 Dose: 25 mcg Documented by: [place] Carbonate ([place] Carbonate) 600 mg PO QHS [facility] Last Admin: 05/03/19 21:01 Dose: 600 mg Documented by: [place] Carbonate ([place] Carbonate) 300 mg PO DAILY [facility] Magnesium Oxide (Mag-Ox 400) 400 mg PO DAILY PRN PRN PRN Reason: Constipation Ondansetron HCl (Zofran Odt) 4 mg PO Q6H PRN PRN PRN Reason: NAUSEA Oxycodone HCl (Oxyir) 5 - 10 mg PO Q4H PRN PRN PRN Reason: Pain Score 4-10/10 Last Admin: 05/04/19 04:08 Dose: 10 mg Documented by: Pantoprazole Sodium (Protonix) 40 mg PO DAILY [facility] Sodium Chloride () 10 - 40 ml IV UD PRN PRN Reason: SALINE FLUSH Medical Necessity - Tobacco Use Smoking Status: Former smoker Tobacco Use: Non-smoker Assessment/Plan POD #1 doing well routine care d/c home today when ride available
[2019-05-04 08:35] VITALS: BP 106/63; PULSE 75; RESP 16; TEMP 37.1; O2SAT 94
--- NOTE | 2019-05-04 08:35 | DCINST_ITS ---
Discharge Diet: No Restrictions Discharge Activity: Return to Normal Activity, May Not Drive - while taking narcotic pain medications., May Shower May resume sexual activity in: 6-8 weeks Call your doctor if your incision/area has: Continuous Slow Oozing, Sudden Increased Bleeding, Increased Pain/ Swelling, Increased Redness, Foul Smelling Discharge Call your doctor if you observe: Fever of 101 or Higher, Inability to urinate, Inability to have a bowel movement, Using more than one pad per hour Cleanse incision/area with: Soap & Water, - - leave skin glue for 10-14 days Allergies/Adverse Reactions: Allergies latex Allergy (Verified 05/03/19 07:22) Rash Medications to take at Discharge lamotrigine 150 mg tablet 200 mg PO BID 02/21/19 lithium carbonate 300 mg capsule 300 mg PO DAILY 02/21/19 hydroxyzine HCl 50 mg tablet 100 mg PO DAILY 04/04/19 Acyclovir 400 mg PO PRN PRN 04/30/19 Celecoxib [Celebrex] 200 mg PO DAILY 04/30/19 Cetirizine HCl [Zyrtec] 10 mg PO PRN PRN 04/30/19 Cholecalciferol (Vitamin D3) [Vitamin D3] 50 mcg PO DAILY 04/30/19 Diphenoxylate HCl/Atropine [Diphenoxylate-Atrop 2.5-0.025] 1 ea PO BID 04/30/19 Levothyroxine [Synthroid] 25 mcg PO DAILY 04/30/19 [place] Carbonate 600 mg PO QHS 04/30/19 Omeprazole [Prilosec] 40 mg PO DAILY 04/30/19 Ibuprofen [Motrin] 600 mg PO Q6H PRN #60 tab 05/04/19 Oxycodone [Oxyir] 5 mg PO Q6H PRN PRN 7 Days #20 tablet 05/04/19 The following prescriptions were given: Ibuprofen [Motrin] 600 mg PO Q6H PRN #60 tab PRN Reason: Pain Transmission Status: Pending to [place] [id number] Oxycodone [Oxyir] 5 mg PO Q6H PRN PRN 7 Days #20 tablet PRN Reason: severe pain Transmission Status: Sent to [place] [id number] Primary Care Physician: Melody Skinner [Primary Care Provider] - Test Results: Test results from this visit will be discussed in further detail at your follow- up appointment, if applicable. Please Follow Up With: Ruba Purcell MD - [phone] When: 1-2 and 6 weeks or as needed
[2019-05-04] MEDS: Pantoprazole Sodium 40 MG Tablet PO (08:41)
[2019-05-04] MEDS: hydrOXYzine PAM 25 MG Capsule 100 MG PO (08:41)
[2019-05-04] MEDS: lamoTRIgine 100 MG Tablet 200 MG PO (08:41)
[2019-05-04] MEDS: Lithium Carbonate 300mg Capsule 300 MG PO (08:42)
[2019-05-04] MEDS: Enoxaparin 40 MG/0.4 ML Syringe SC (08:42)
[2019-05-04] MEDS: Docusate Sodium 100 MG Capsule PO (08:42)
[2019-05-04] MEDS: Diphenoxylate/Atrop 1 Tablet PO (08:48)
== END 2019-05-04 16:38 | disposition home or self-care (01) ==
LOC: MS3 05-04 09:48
PROVIDERS: Anesthesiology; Admitting Provider Obstetrics & Gynecology; Referring Provider Obstetrics & Gynecology; Visit Provider Obstetrics & Gynecology
PROC: 0UT9FZZ Resection of Uterus, Via Natural or Artificial Opening With Percutaneous Endoscopic Assistance (ICD-10-PCS; CPT 58552; principal; 2019-05-03 08:40)
DX: D25.9 Leiomyoma of uterus, unspecified (principal); N93.9 Abnormal uterine and vaginal bleeding, unspecified; N80.0 Endometriosis of uterus; N88.8 Other specified noninflammatory disorders of cervix uteri; N83.6 Hematosalpinx; N94.6 Dysmenorrhea, unspecified; F41.9 Anxiety disorder, unspecified; F32.9 Major depressive disorder, single episode, unspecified; E07.9 Disorder of thyroid, unspecified; K58.0 Irritable bowel syndrome with diarrhea; K21.9 Gastro-esophageal reflux disease without esophagitis; I95.0 Idiopathic hypotension; Z87.891 Personal history of nicotine dependence; Z79.899 Other long term (current) drug therapy
CPT/HCPCS: 00940; 58552; 36415; 81025; 82962; 83735; 84443; 85027; 86850; 86900; 86901; 88307; 94762; 96372; 96374; 96376; 99218; 99251; J7120; G0378; G0379; G0463; J2405